=== PATIENT | female | born 1990 | race Caucasian/White ===

== ENCOUNTER → 2018-04-07 17:00 | Outpatient (CLI) | payer OTHER, MEDICAID, SELFPAY ==
--- NOTE | 2018-04-07 17:04 | DI.RAD.S_ITS ---
PROCEDURE: XR WRIST LT MIN 3V INDICATIONS: LEFT WRIST PAIN TECHNIQUE: 4 views of the wrist were acquired. COMPARISON: [facility], CT, UPPER EXTREMITY WO CONTRAST, 02/27/2013, 8:10. [facility], CR, WRIST MINIMUM 3 VIEWS LEFT, 02/15/2013, 10:09. FINDINGS: Bones: No fractures or dislocations. No suspicious bony lesions. Radiocarpal degenerative narrowing is present. Scaphoid view: The scaphoid demonstrates irregular contours as well as multiple areas of cystic change. This is likely reflective of scaphoid fracture sequela identified on 02/15/13. Soft tissues: No suspicious soft tissue calcifications. IMPRESSION: No visualized acute fracture or dislocation. Post fracture sequela of the scaphoid is present as described above. Dictated by: mIelda Daly M.D. on 04/07/2018 at 18:00 Approved by: Imelda Daly M.D. on 04/07/2018 at 18:01
== END ==
PROVIDERS: Family Provider Family Medicine; PCP Family Medicine; Visit Provider Family Medicine
DX: M25.532 Pain in left wrist (principal)
CPT/HCPCS: 73110

== ENCOUNTER 2021-05-28 18:03 | Emergency (ER) | payer OTHER, MEDICAID, SELFPAY ==
[2021-05-28 18:19] VITALS: BP 152/89; PULSE 74; RESP 18; TEMP 36.9; O2SAT 100; BMI 30.9
[2021-05-28 18:37] LABS: COVID19 -Nasal RAPID POSITIVE (Negative)
[2021-05-28 20:05] VITALS: O2SAT 99
--- NOTE | 2021-05-31 19:58 | ED.RECABL ---
HPI - Recheck/Abnormal Lab/Rx <Bijal Bonilla PA-C - Last Filed: 05/31/21 20:05> General Chief Complaint: Recheck/Abnormal Lab/Rx Stated Complaint: + at home Covid test. Time Seen by Provider: 05/28/21 19:49 Source: patient Mode of arrival: Ambulatory History of Present Illness HPI narrative: 30-year-old female with no reported past medical history presents to the ED status post a positive COVID-19 test that she took at work. Patient states she has been having URI symptoms for the past 2 days after a COVID-19 exposure. Her test at work was positive, she is here in the ED for a confirmation COVID-19 test. Patient is currently 6 months with an LMP in November. Patient endorses all over muscle aches. Patient denies fever, chills, shortness of breath, chest pain, abdominal pain, nausea, vomiting, dysuria, lightheadedness, dizziness, syncope. Patient endorses current tobacco use, marijuana use. Related Data Home Medications Medication Instructions Recorded Confirmed No Known Home Medications 05/28/21 05/28/21 Allergies Allergy/AdvReac Type Severity Reaction Status Date / Time diphenhydramine Allergy Severe Anaphylaxis Verified 05/28/21 18:41 [From Benadryl] cephalexin [CEPHALEXIN] Allergy Intermediate HIVES Verified 05/28/21 18:22 ibuprofen Allergy Intermediate Anaphylaxis Verified 05/28/21 18:43 codeine Allergy Mild Hives Verified 05/28/21 18:40 latex Allergy Unknown Verified 05/28/21 18:45 levofloxacin Allergy Unknown Verified 05/28/21 18:43 morphine Allergy Unknown Verified 05/28/21 18:43 oxycodone Allergy Unknown Verified 05/28/21 18:43 Penicillins Allergy Unknown Verified 05/28/21 18:43 procaine Allergy Unknown Verified 05/28/21 18:43 Review of Systems <Bijal Bonilla PA-C - Last Filed: 05/31/21 20:05> Constitutional Constitutional: Reports body ache(s), Denies chills, Denies fatigue, Denies fever(s), Denies frequent falls, Denies lethargy and Denies weakness Eyes Eyes: Denies change in vision, Denies eye discharge, Denies irritation and Denies loss of vision ENT Ears, Nose, Mouth, and Throat: Denies change in voice, Denies dizziness, Denies neck pain, Denies sore throat and Denies throat swelling Cardiovascular Cardiovascular: Denies chest pain, Denies irregular heart rhythm, Denies lightheadedness, Denies palpitations, Denies dyspnea, Denies dyspnea on exertion and Denies orthopnea Respiratory Respiratory: Denies cough, Denies dyspnea, Denies dyspnea on exertion and Denies wheezing Gastrointestinal Gastrointestinal: Denies abdominal pain, Denies change in bowel habits, Denies diarrhea, Denies nausea and Denies vomiting Musculoskeletal Musculoskeletal: Denies neck pain and Denies numbness Integumentary/Breasts Skin/Breast: Denies pruritus, Denies erythema, Denies rash and Denies wounds Neurologic Neurologic: Denies behavioral changes, Denies confusion, Denies dizziness, Denies frequent falls, Denies loss of vision, Denies numbness and Denies weakness Psychiatric Psychiatric: Denies anxiety, Denies behavioral changes, Denies confusion, Denies depression, Denies homicidal ideation and Denies suicidal ideation Endocrine Endocrine: Denies fatigue, Denies flushing and Denies palpitations Hematologic/Lymphatic Hematologic/Lymphatic: Denies easy bruising Allergic/Immunologic Allergic/Immunologic: Denies urticaria, Denies throat swelling and Denies wheezing Patient History <Bijal Bonilla PA-C - Last Filed: 05/31/21 20:05> Medical History Marijuana abuse Smoker Social History Smoking Status: Current every day smoker Smoking Status: Current every day smoker tobacco type: cigarettes alcohol intake frequency: other Substance Use Type: marijuana Exam <Bijal Bonilla PA-C - Last Filed: 05/31/21 20:05> Initial Vital Signs Initial Vital Signs: Vital Signs Temperature 98.5 F 05/28/21 18:19 Pulse Rate 74 05/28/21 18:19 Respiratory Rate 18 05/28/21 18:19 Blood Pressure 152/89 H 05/28/21 18:19 Pulse Oximetry 100 05/28/21 18:19 Const General: cooperative HENMT Head: normocephalic and atraumatic Ears: external ears normal and TM's normal bilaterally Nose: external nose normal and No nasal discharge Face and sinus: sinuses nontender, face symmetric, no sinus tenderness and No dry mucous membranes Mouth: oral mucosae normal and moist mucous membranes Teeth and gingiva: dentition normal Throat: tonsils normal and uvula midline Eyes General: appearance normal, both eyes and all related structures Eyelids: eyelids normal Conjunctivae: conjunctivae normal Sclera: sclerae normal Pupils: PERRL EOM: EOM intact bilaterally Neck Neck: normal visual inspection, trachea midline, No lymphadenopathy, No midline deformity and No JVD Lymphatic: No lymphedema Chest Chest: normal inspection of the chest Resp Effort & Inspection: normal respiratory effort, able to speak in complete sentences, no respiratory distress and no use of accessory muscles Auscultation: clear to auscultation bilaterally, no rales, no rhonchi and no wheezes Cardio Rate: regular rate Rhythm: regular rhythm Heart Sounds: no click, no gallops, no murmurs and no rubs Pulses: normal peripheral pulses GI Inspection: non-distended Palpation: soft, no hepatosplenomegaly, No guarding, No pulsatile mass and No tender Auscultation: normal bowel sounds Back/Spine/Pelvis Back: No CVA tenderness Cervical Spine: cervical ROM normal and No pain with cervical ROM Thoracic/Lumbar Spine: thoracic and lumbar spine normal to inspection Skin General: no rashes or lesions noted, No jaundice and No petechiae Neuro General: patient alert, patient oriented x3, gait normal and no focal motor deficits Speech: speech normal Extrem General: full ROM, no clubbing, cyanosis or edema, no pedal edema and no calf tenderness Psych Appearance: well kempt Mental Status: mental status grossly normal Attitude: cooperative Thought Content: normal and suicidality Judgment: judgment good <Zeus Samayoa MD - Last Filed: 06/01/21 07:12> Initial Vital Signs Initial Vital Signs: Vital Signs Temperature 98.5 F 05/28/21 18:19 Pulse Rate 74 05/28/21 18:19 Respiratory Rate 18 05/28/21 18:19 Blood Pressure 152/89 H 05/28/21 18:19 Pulse Oximetry 100 05/28/21 18:19 MDM - Recheck/Abnormal Lab/Rx <Bijal Bonilla PA-C - Last Filed: 05/31/21 20:05> Medical Records Attestation: I reviewed the patient's medical records. Lab Data Attestation: I reviewed the patient's lab results. Lab results narrative: COVID-19 positive Labs: Lab Results 05/28/21 Range/Units 18:15 SARS-CoV-2 (PCR) Positive H (Negative) MDM Narrative Medical decision making narrative: 30-year-old female with no reported past medical history presents to the ED status post a positive COVID-19 test that she took at work. concern for COVID-19 infection, will order COVID-19 test. Will discharge home with OBGYN follow-up and ED return precautions. <Zeus Samayoa MD - Last Filed: 06/01/21 07:12> Lab Data Labs: Lab Results 05/28/21 Range/Units 18:15 SARS-CoV-2 (PCR) Positive H (Negative) Discharge Plan Departure Patient Disposition: Home Clinical Impression: COVID-19 Instructions: DI for COVID-19 (Suspected or Confirmed ) Activity Restrictions/Additional Instructions: You were diagnosed positive for the COVID-19 vaccine in the ED today. Continue to stay hydrated by drinking lots of water. You may take Tylenol for symptoms. Continue masking an isolated for 10-14 days. Return to the ED if you experience chest pain, shortness of breath. Prescriptions: No Action No Known Home Medications RF: 0 <Zeus Samayoa MD - Last Filed: 06/01/21 07:12> Cosign ED Attending Cosignature Attestation: I was immediately available in the department for consultation. This documentation has been reviewed and I agree with assessment and plan. Supervised by Zeus Samayoa MD
== END 2021-05-28 20:06 | disposition home or self-care (01) ==
PROVIDERS: Emergency Medicine; Emergency Provider Student in an Organized Health Care Education/Training Program; Family Provider Family Medicine
DX: U07.1 COVID-19 (principal)
CPT/HCPCS: 87635; 99281; 99282; C9803

== ENCOUNTER 2021-08-13 02:13 | Inpatient (IN) | payer MEDICAID, OTHER, SELFPAY ==
[2021-08-13] VITALS (9 sets, daily range): BP systolic 122–164; BP diastolic 80–111; PULSE 70–120; RESP 12–16; TEMP 36.4–36.6; O2SAT 96–100
--- NOTE | 2021-08-13 | PATH_ITS ---
[facility] Accession Number: [id number] . 01 Material submitted: . fallopian tube - BILATERAL FALLOPIAN TUBES . 02 Diagnosis: Bilateral Fallopian Tubes, Tubal Ligation: Complete cross sections of segments of fallopian tube x2. MRV 08/17/2021 1348 Local . 02 Electronically signed: . Britt Gonzalez MD, Pathologist NPI- [id number] . 01 Gross description: . The specimen is received in formalin, labeled bilateral fallopian tubes, and consists of two fallopian tube segments measuring 1.3 cm in length by 0.6 cm in diameter each. The serosa is penny-pink and smooth. The specimen is serially sectioned and entirely submitted in cassettes A1-A2. ([id number]) /[facility] 08/15/2021 1411 Local . 02 Pathologist provided ICD-10: Z30.2 . 02 CPT . 869295 Performed at: 01 [facility] [address] [facility] [place] [facility] [place], [place], [place] [id number] MD Blair Rogel MD Phone: [phone] Performed at: 02 [facility] [address] [place], [place] [id number] MD Sheeba Lee MD Phone: [phone]
[2021-08-13 02:54] LABS: Add Manual Diff / Slide Review NO; Basophils Absolute Auto 200 /uL (0-100); Basophils Percent Auto 1.1 % (0-2); Eosinophils Absolute Auto 100 /uL (0-450); Eosinophils Percent Auto 0.8 % (2-4); Hemoglobin 12.4 g/dL (12.0-16.0); Lymphocytes Absolute Auto 3300 /uL (1100-4500); Lymphocytes Percent Auto 19.9 % (25-40); Mean Corpuscular HGB Conc 33.6 % (30-36); Mean Corpuscular Hemoglobin 27.6 PG (26-34); Mean Corpuscular Volume 82.1 fL (80-100); Monocytes Absolute Auto 900 /uL (0-900); Monocytes Percent Auto 5.4 % (3-14); Neutrophils Absolute Auto 12000 /uL (1500-7000); Neutrophils Percent Auto 72.8 % (50-75); Platelet Count 349 X10^3/uL (150-400); Red Cell Distribution Width 14.9 % (11.6-14.8); White Blood Cell Count 16.5 X10^3/uL (4.5-11.0)
[2021-08-13 03:02] LABS: Aspartate Aminotransferase 20 IU/L (14-36); BUN Creatinine Ratio 14.3 (6-22); Blood Urea Nitrogen 9 mg/dL (7-17); Estimated Glomerular Filt Rate > 60.0 mL/min (>60); Uric Acid 5.2 mg/dL (2.5-6.2)
[2021-08-13] MEDS: HYDRALAZINE 20 MG/ML VIAL 10 MG IV (03:10)
[2021-08-13 03:15] LABS: Add Manual Diff / Slide Review NO; Basophils Absolute Auto 0 /uL (0-100); Basophils Percent Auto 0.2 % (0-2); Eosinophils Absolute Auto 200 /uL (0-450); Hematocrit 36.2 % (36-46); Hemoglobin 12.1 g/dL (12.0-16.0); Lymphocytes Absolute Auto 3100 /uL (1100-4500); Lymphocytes Percent Auto 19.3 % (25-40); Mean Corpuscular HGB Conc 33.5 % (30-36); Mean Corpuscular Hemoglobin 27.5 PG (26-34); Monocytes Absolute Auto 1000 /uL (0-900); Monocytes Percent Auto 6.4 % (3-14); Neutrophils Absolute Auto 11600 /uL (1500-7000); Neutrophils Percent Auto 73.1 % (50-75); Platelet Count 348 X10^3/uL (150-400); Red Blood Cell Count 4.41 X10^6/uL (4.0-5.2); Red Cell Distribution Width 15.4 % (11.6-14.8); White Blood Cell Count 15.9 X10^3/uL (4.5-11.0)
--- NOTE | 2021-08-13 03:32 | DI.US.S_ITS ---
PROCEDURE: US OB LIMITED INDICATIONS: ACTIVE LABOR; NO CARE OUTSIDE/PRIOR DATING DATA: Last menstrual period (LMP): Unknown. LMP-based estimated date of delivery (RAVIN): Unknown. First dating scan (date and location): 08/13/2021, [facility]. Estimated date of delivery (RAVIN) from first dating scan: 09/17/2021. The calculations are made using the 3rd trimester ultrasound RAVIN of 09/17/2021. TECHNIQUE: Real-time scanning was performed of the fetus, with image documentation and biometric measurements. COMPARISON: None. FINDINGS: General: A single live intrauterine gestation is present. Presentation: Breech. Placenta: Placental position is fundal , without previa. Amniotic fluid index: 8.8 cm, normal range is 5-24 cm. Single deepest vertical pocket is 4.7 cm. heart rate: 149 beats per minute. Maternal cervical canal: Not seen biometrics: Biparietal diameter: 8.6 cm equals 34 weeks 5 days Head circumference: 32.3 cm equals 36 weeks 4 days Abdominal circumference: 31.9 cm equals 35 weeks 6 days Femur length: 6.4 cm equals 32 weeks 6 days Clinically estimated gestational age: Unknown Composite gestational age from present scan: 35 weeks 0 days Estimated weight and percentile: 2573 g, percentile rank not defined Other: Not applicable. IMPRESSION: On these images, the estimated gestational age is 35 weeks 0 days. Please note that 3rd trimester ultrasound dating is only considered accurate to within 3 weeks. Note: No significant discrepancy from the preliminary report. We strive to produce accurate, complete, and clear reports of imaging services. To assist us in improving patient care, this report was composed using standard report templates and voice recognition software. Therefore, it may contain abnormal punctuation, insertions and/or omissions. Occasional wrong-word or sound-alike substitutions may occur. Though we review the report and make efforts to correct it, we do recommend that the report be read carefully in proper context to recognize any text inaccuracies. Dictated by: J Carlos Angel M.D. on 08/13/2021 at 8:18 Approved by: J Carlos Angel M.D. on 08/13/2021 at 8:20
[2021-08-13 03:39] LABS: COVID19 - ADMIT (NP swab/PCR) Negative (Negative)
[2021-08-13] MEDS: HYDRALAZINE 20 MG/ML VIAL 5 MG IV (03:55)
[2021-08-13] MEDS: fentaNYL 100 MCG/2 ML INJ (04:20)
--- NOTE | 2021-08-13 04:20 | PM.OBHP.IH.1 ---
OB HPI Date/Time Date of admission: 08/13/21 Date Patient Seen: 08/13/21 Time Patient Seen: 03:50 History of Present Condition Chief complaint: OBS RAVIN Calculator Estimated Delivery Date Method Current WG Current Estimate 09/10/21 Conception 36w 0d Estimated Gestational Age (weeks): 35+6 : 3 Para: 2 care: none Dating criteria OB: based on LMP only Ultrasounds: none Obstetrical complications: gestational hypertension Medical complications OB: none Indications Operative indications ( section): previous uterine surgery Preadmission Labs Last OB Lab Results: Hematocrit 36.2 % (36-46) 08/13/21 02:40 08/13/21 Hemoglobin 12.1 g/dL (12.0-16.0) 08/13/21 02:40 08/13/21 Hepatitis B Surface Antigen Pending 08/13/21 02:40 08/13/21 Rubella Antibody Pending 08/13/21 02:40 08/13/21 -: Chlamydia screen: unknown, Gonorrhea screen: unknown and Urine: unknown External Labs -: Urine: unknown Evaluation Evaluation Baseline heart rate: 145 Variability: Average (6-10) monitor accelerations: Present Monitor Decelerations: Variable Contraction Frequency (minutes): 3 Uterine Contraction Intensity: Strong/Firm Status: Category ll Dilation (cm): 2 Effacement (%): 90 station: -2 [facility] Medical History Marijuana abuse Smoker Surgical History (Updated 08/13/21 @ 04:24 by Lizbeth Burris MD) History of section Social History Smoking Status: Current every day smoker Meds Home Medications and Allergies Home Medications Medication Instructions Recorded Confirmed Type No Known Home Medications 05/28/21 05/28/21 History Allergies Allergy/AdvReac Type Severity Reaction Status Date / Time diphenhydramine Allergy Severe Anaphylaxis Verified 05/28/21 18:41 [From Benadryl] cephalexin [CEPHALEXIN] Allergy Intermediate HIVES Verified 05/28/21 18:22 ibuprofen Allergy Intermediate Anaphylaxis Verified 05/28/21 18:43 codeine Allergy Mild Hives Verified 05/28/21 18:40 latex Allergy Unknown Verified 05/28/21 18:45 levofloxacin Allergy Unknown Verified 05/28/21 18:43 morphine Allergy Unknown Verified 05/28/21 18:43 oxycodone Allergy Unknown Verified 05/28/21 18:43 Penicillins Allergy Unknown Verified 05/28/21 18:43 procaine Allergy Unknown Verified 05/28/21 18:43 OB Exam Narrative Exam Narrative: Generally: Patient in severe distress secondary to contractions Lungs: Clear to auscultation bilaterally Cardiovascular: Regular rate and rhythm Fundal height: 36 cm Estimated weight: 2500 g Extremities: 1+ DTRs, trace edema Objective Labs Result Diagrams: 08/13/21 02:40 08/13/21 02:40 Labs: Laboratory Results - last 24 hr 08/13/21 08/13/21 08/13/21 02:30 02:40 02:40 WBC 16.5 H 15.9 H RBC 4.50 4.41 Hgb 12.4 12.1 Hct 37.0 36.2 MCV 82.1 82.0 MCH 27.6 27.5 MCHC 33.6 33.5 RDW 14.9 H 15.4 H Plt Count 349 348 Neut % (Auto) 72.8 73.1 Lymph % (Auto) 19.9 L 19.3 L [place] % (Auto) 5.4 6.4 Eos % (Auto) 0.8 L 1.0 L Baso % (Auto) 1.1 0.2 Neut # (Auto) 17309 H 48329 H Lymph # (Auto) 3300 3100 [place] # (Auto) 900 1000 H Eos # (Auto) 100 200 Baso # (Auto) 200 H 0 BUN Creatinine Estimated GFR BUN/Creatinine Ratio Uric Acid AST SARS-CoV-2 (PCR) Negative 08/13/21 02:40 WBC RBC Hgb Hct MCV MCH MCHC RDW Plt Count Neut % (Auto) Lymph % (Auto) [place] % (Auto) Eos % (Auto) Baso % (Auto) Neut # (Auto) Lymph # (Auto) [place] # (Auto) Eos # (Auto) Baso # (Auto) BUN 9 Creatinine 0.63 Estimated GFR > 60.0 BUN/Creatinine Ratio 14.3 Uric Acid 5.2 AST 20 SARS-CoV-2 (PCR) Assessment and Plan Assessment and Plan Assessment and Plan narrative: Assessment: 31-year-old 3 para 2 at approximately 36 weeks gestation by conception date in active labor with 2 prior sections. Suspect drug use No care Severe gestational hypertension, no other signs and symptoms of preeclampsia Desires permanent sterilization Plan: Patient received 10 mg slow IV push of IV hydralazine, followed 20 minutes later by 5 mg slow IV push Repeat section with bilateral tubal ligation The risks, benefits, and alternatives to the procedure were explained to the patient. The risks including bleeding, infection, injury to the bowel, bladder, or ureters. She understands that the tubal ligation will render her unable to have any more children. She also understands that there is possibility of a clot in the leg or lungs due to this major surgery. She understands all of these risks and agrees to proceed. A full par Q was held and consent form was signed. Group B strep obtained COVID negative Time Spent with Patient Total time spent with greater than 50% in coordination of care (as documented) at patient's floor/unit and/or counseling patient:: 25 - 35 minutes
[2021-08-13] MEDS: CLINDAMYCIN 900 MG/50 ML PIGGYBACK 50 MG IV (05:00)
[2021-08-13 05:05] LABS: Hepatitis B Surface Antigen NEGATIVE s/c (NEGATIVE); Rubella Antibody IgG 11.7 IU/mL (>15)
--- NOTE | 2021-08-13 05:15 | SUR.OPER ---
Supine on Padded OR bed, head on pillow, safety belt at thigh, arms secured on padded arm boards at <90 degrees abduction. Bump under right buttock. Legs uncrossed with pillow under knees, gel pad to heels, tape over blanket to lower legs.
--- NOTE | 2021-08-13 05:53 | P.OP_ITS ---
Operative Date/Time/Diagnoses Date of procedure: 08/13/21 Time of procedure: 05:53 Pre-op diagnosis: Estimated gestational age of 35-36 weeks. No care Breech presentation Active labor 2 prior sections Desires permanent sterilization Post-op diagnosis: same Procedure & Clinicians Procedure: Repeat low-transverse section Bilateral tubal ligation Same procedure as scheduled: Yes Indications: Breech presentation Two prior sections Desires permanent sterilization Surgeon: Lizbeth Burris Chairperson Anesthesiology: Constance Gordillo Reason for Chairperson Anesthesiology: The assistant counsel was responsible for retraction on the way in. She is cyst did with delivery of the breech infant. She is cyst and with retraction and cutting of suture on closure. Anesthesia Type: Spinal Operative Notes Findings: Live male in the complete breech presentation Normal uterus, tubes, and ovaries Closure Type: primary Specimen(s): cord blood and tubes/segments of tubes Intraoperative meds administered: Ketorolac and Pitocin Applied: Catheter (Latex free, to continuous drainage) Estimated Blood Loss (mL): 500 Blood products transfused: none Procedure in detail: The patient was taken to the operating room where she was placed in the seated position. Spinal anesthesia was administered. The patient was then placed in the dorsal supine position with a leftward tilt. She was prepped and draped in the usual sterile fashion. A timeout was performed. After spinal analgesia was found to be adequate, a Pfannenstiel skin incision was made through the previous incision and carried through to the underlying layer fascia. The fascia was nicked in the midline, and the incision extended bilaterally with the Dunham scissors. The superior aspect of the fascial incision was grasped with a Parish clamps, elevated, and the underlying rectus muscles dissected off sharply and bluntly. Attention was then turned to the inferior aspect of this incision wh ich in a similar fashion was grasped with a Parish clamps, elevated, and the underlying rectus muscles dissected off sharply and bluntly. The rectus muscles were in the midline. The peritoneum was identified, grasped between 2 hemostats, and entered sharply with the Metzenbaum scissors. This incision was extended superiorly and inferiorly with good visualization of the bladder. The Saji was inserted into the peritoneal cavity. The vesicouterine peritoneum was identified, grasped with the pickup, and entered sharply with the Metzenbaum scissors. This incision was extended bilaterally, and the bladder flap was created digitally. The bladder blade was inserted. The lower uterine segment was incised in a transverse fashion with the scalpel. Upon entering the amniotic sac there was moderate amount of clear amniotic fluid. The infant was delivered by total breech extraction. The nose and mouth were suctioned with bulb suction. The cord was double clamped and cut. The infant was handed off to waiting RN and RT. Cord bloods were obtained. The placenta was delivered manually. The uterus was cleared of all clots and debris. The uterine incision was repaired with #1 chromic in a running interlocking fashion, and a second layer the same suture was used for an imbricating layer. Hemostasis was achieved. The tubes and ovaries were examined and were found to be normal. The right tube was carried out to the fimbriated end. 2[address] to the distal and a 2 cm segment of tube was ligated with 0 plain chromic x2. A 1 cm segment of tube was excised. The ends of the tube were cauterized. This was repeated on the patient's left tube. Gutters were cleared of all clots and debris. The bladder flap was reapproximated using 2-0 Vicryl in a running fashion. The parietal peritoneum was closed using 2-0 Vicryl in a running fashion. The fascia was reapproximated using 0 Vicryl in a running fashion. The subcutaneous layer was copiously irrigated with warm normal saline. 6 simple interrupted sutures of 3-0 Vicryl were placed to reapproximate the subcutaneous layer. The skin was closed with 4-0 Monocrylin a subcuticular fashion. Steri-Strips were p laced. An Aquacell dressing was placed. The uterus was expressed of a small amount of old blood. Sponge, lap, and instrument counts were correct x-2. The patient tolerated the procedure well, and was taken to PACU in stable condition. Complications: none Baby 1: Infant Gender: Male Presentation: breech Details: complete Placental Delivery Description: Manual Removal Cord Vessel Description: 3 Vessels score (1 min): 8 score (5 min): 9 weight: 6 lb 9 oz Post-operative Condition: stable Disposition: PACU Aftercare: routine postop
--- NOTE | 2021-08-13 05:53 | PM.PREOP ---
Pre-operative Note COVID-19 COVID-19 status: Negative Result date/Date tested (Pos, Neg/Pending): 08/13/21 Interval Note History & Physical reviewed/Exam performed by Physician: Yes Changes to H&P: No H&P completed within 30 days and has changed as indicated here:: 08/13/21
[2021-08-13 06:03] LABS: Bilirubin Urine UA NEGATIVE (NEGATIVE); Color Urine UA YELLOW; Glucose Urine UA NEGATIVE (Negative); Ketones Urine UA TRACE (NEGATIVE); Leukocyte Esterase Urine UA NEGATIVE (NEGATIVE); Nitrite Urine UA NEGATIVE (Negative); Occult Blood Urine UA 1+ (Negative); Protein Urine UA 2+ (Negative); Specific Gravity Urine UA 1.025 (1.000-1.035); Urobilinogen Urine UA 0.2 E.U./dL (0.2)
[2021-08-13 06:05] LABS: Appearance Urine UA SL CLOUDY; pH Urine UA 6.5 (4.5-8.0)
[2021-08-13 06:13] LABS: Creatinine Urine Random 260.4 mg/dL; Protein (Total) Urine Random 47 mg/dL (0-12); Protein Creatinine Ratio Urine 0.18 GRAM/24H
[2021-08-13] MEDS: HYDROCODONE/ACET 5/325 TABLET 1 TAB PO (06:28)
[2021-08-13 06:42] LABS: Bacteria Urine Many (>30); Culture Indicated Urine Specimen Cultured; RBC Urine 1-5/HPF (0-5/HPF); WBC Urine 1-5/HPF (0-5/HPF)
[2021-08-13 06:45] LABS: UR Morphine/Opiate cutoff 300 Negative (Negative); Ur Creatinine 50 (Normal); Ur Specific Gravity 1.025 (Normal); Urine Amphetamines Positive (Negative); Urine Cocaine Negative (Negative); Urine Methamphetamines Positive (Negative); Urine Tetrahydrocannabinol Positive (Negative); Urine pH 5 (Normal)
[2021-08-13 06:46] LABS: Urine Barbiturates Negative (Negative); Urine Benzodiazepines Negative (Negative); Urine MDMA Negative (Negative); Urine Methadone Negative (Negative); Urine Oxycodone Negative (Negative); Urine Phencyclidine Negative (Negative); Urine Tricyclic Antidepressant Negative (Negative)
--- NOTE | 2021-08-13 06:50 | SUR.OPER ---
viable baby boy born at 0521, placenta delivered at 0524, cord blood and placenta given to OB RN
--- NOTE | 2021-08-13 06:51 | SUR.PHASEI ---
Addendum entered by Sarah Pryor R.N. 08/13/21 07:00: Received with 20 units pitocin in IVF. Nearly completed on discharge from PACU. Original Note: Late Entry: Received to PACU after spinal anesthesia. VSS. Report from Dr Lopez and JHOAN Palacios Report called to JHOAN Lopes. Transferred to center room 4. Received in room by JHOAN Chavez.
[2021-08-13] MEDS: LACTATED RINGERS 1,000 ML 100 ML IV ×4 (07:15→19:03)
[2021-08-13 07:25] LABS: Strep Grp B PCR NEG for Grp B Strep
[2021-08-13] MEDS: PRENATAL VIT,CALC/IRON/FOLIC 1 TABLET 1 TAB PO (08:22)
[2021-08-13] MEDS: LABETALOL 20 MG/4 ML SYRINGE IV (08:23)
[2021-08-13] MEDS: DOCUSATE 100 MG CAPSULE 200 MG PO (08:23)
[2021-08-13] MEDS: ACETAMINOPHEN 325 MG TABLET 650 MG PO (08:35)
[2021-08-13] MEDS: KETOROLAC 30 MG/ML VIAL IV (11:35)
[2021-08-13] MEDS: TRAMADOL 50 MG TABLET 100 MG PO ×2 (13:11→20:01)
[2021-08-13 19:28] LABS: Add Manual Diff / Slide Review NO; Basophils Absolute Auto 100 /uL (0-100); Basophils Percent Auto 0.4 % (0-2); Eosinophils Absolute Auto 0 /uL (0-450); Hematocrit 23.1 % (36-46); Hemoglobin 7.6 g/dL (12.0-16.0); Lymphocytes Absolute Auto 2300 /uL (1100-4500); Lymphocytes Percent Auto 10.8 % (25-40); Mean Corpuscular HGB Conc 32.8 % (30-36); Mean Corpuscular Volume 82.4 fL (80-100); Monocytes Absolute Auto 1000 /uL (0-900); Monocytes Percent Auto 4.5 % (3-14); Neutrophils Absolute Auto 17900 /uL (1500-7000); Neutrophils Percent Auto 84.3 % (50-75); Platelet Count 371 X10^3/uL (150-400); Red Blood Cell Count 2.81 X10^6/uL (4.0-5.2); Red Cell Distribution Width 15.1 % (11.6-14.8); White Blood Cell Count 21.3 X10^3/uL (4.5-11.0)
--- NOTE | 2021-08-13 19:29 | P.PNOB_ITS ---
Subjective - OB Subjective Patient comments: tolerating diet and other (Complaining of lower abdominal pain not necessarily just incisional pain) baby status: doing well feeding status: exclusively bottle feeding Date Patient Seen: 08/13/21 Time Patient Seen: 19:29 Interval history: Postoperative repeat section with bilateral tubal ligation. Patient with decreased urine output. Abdominal pain. Patient denies headaches, scotomata, epigastric pain. She denies nausea. She denies chest pains or shortness of breath. Patient states she arrived in with a cough into the hospital. Exam Vital Signs (past 8 hours): - Blood pressure 118/81, pulse 90, temperature 97.7? 08/13/21 11:35 Temperature 97.5 F L Oxygen Delivery Method Room Air Narrative Exam Narrative: Abdomen is soft. She has tenderness across her lower abdomen with no rebound. Uterus is firm, at U. Dressing is clean, dry, intact. Mild lochia. Extremities without edema and nontender. Objective Labs Result Diagrams: 08/13/21 19:21 08/13/21 19:21 Labs: Laboratory Results - last 24 hr 08/13/21 08/13/21 08/13/21 02:30 02:40 02:40 WBC 16.5 H RBC 4.50 Hgb 12.4 Hct 37.0 MCV 82.1 MCH 27.6 MCHC 33.6 RDW 14.9 H Plt Count 349 Neut % (Auto) 72.8 Lymph % (Auto) 19.9 L [place] % (Auto) 5.4 Eos % (Auto) 0.8 L Baso % (Auto) 1.1 Neut # (Auto) 58434 H Lymph # (Auto) 3300 [place] # (Auto) 900 Eos # (Auto) 100 Baso # (Auto) 200 H BUN Creatinine Estimated GFR BUN/Creatinine Ratio Uric Acid AST Urine Color Urine Appearance Urine pH Ur Specific [place] Urine Protein Urine Glucose (UA) Urine Ketones Urine Occult Blood Urine Nitrate Urine Bilirubin Urine Urobilinogen Ur Leukocyte Esterase Urine RBC Urine WBC Urine Bacteria Ur Culture Indicated? U Random Total Protein Urine Creatinine Protein/Creatinin Ratio U Opiates 300ng/mL cut Ur Oxycodone Screen Urine Methadone Screen Ur Barbiturates Screen U Tricyclic Antidepress Ur Phencyclidine Scrn Ur Amphetamines Screen U Methamphetamines Scrn Ur MDMA Scrn (Ecstasy) U Benzodiazepines Scrn Urine Cocaine Screen U Marijuana (THC) Screen SARS-CoV-2 (PCR) Negative Hep Bs Antigen Negative Rubella Antibody 11.7 L Group B Strep (PCR) Blood Type Antibody Screen 08/13/21 08/13/21 08/13/21 02:40 02:40 03:05 WBC 15.9 H RBC 4.41 Hgb 12.1 Hct 36.2 MCV 82.0 MCH 27.5 MCHC 33.5 RDW 15.4 H Plt Count 348 Neut % (Auto) 73.1 Lymph % (Auto) 19.3 L [place] % (Auto) 6.4 Eos % (Auto) 1.0 L Baso % (Auto) 0.2 Neut # (Auto) 49574 H Lymph # (Auto) 3100 [place] # (Auto) 1000 H Eos # (Auto) 200 Baso # (Auto) 0 BUN 9 Creatinine 0.63 Estimated GFR > 60.0 BUN/Creatinine Ratio 14.3 Uric Acid 5.2 AST 20 Urine Color Urine Appearance Urine pH Ur Specific [place] Urine Protein Urine Glucose (UA) Urine Ketones Urine Occult Blood Urine Nitrate Urine Bilirubin Urine Urobilinogen Ur Leukocyte Esterase Urine RBC Urine WBC Urine Bacteria Ur Culture Indicated? U Random Total Protein Urine Creatinine Protein/Creatinin Ratio U Opiates 300ng/mL cut Ur Oxycodone Screen Urine Methadone Screen Ur Barbiturates Screen U Tricyclic Antidepress Ur Phencyclidine Scrn Ur Amphetamines Screen U Methamphetamines Scrn Ur MDMA Scrn (Ecstasy) U Benzodiazepines Scrn Urine Cocaine Screen U Marijuana (THC) Screen SARS-CoV-2 (PCR) Hep Bs Antigen Rubella Antibody Group B Strep (PCR) Blood Type O Positive Antibody Screen Negative 08/13/21 08/13/21 08/13/21 04:10 05:50 05:50 WBC RBC Hgb Hct MCV MCH MCHC RDW Plt Count Neut % (Auto) Lymph % (Auto) [place] % (Auto) Eos % (Auto) Baso % (Auto) Neut # (Auto) Lymph # (Auto) [place] # (Auto) Eos # (Auto) Baso # (Auto) BUN Creatinine Estimated GFR BUN/Creatinine Ratio Uric Acid AST Urine Color Yellow Urine Appearance Sl cloudy Urine pH 6.5 Ur Specific [place] 1.025 Urine Protein 2+ H Urine Glucose (UA) Negative Urine Ketones Trace H Urine Occult Blood 1+ H Urine Nitrate Negative Urine Bilirubin Negative Urine Urobilinogen 0.2 Ur Leukocyte Esterase Negative Urine RBC 1-5/hpf Urine WBC 1-5/hpf Urine Bacteria Many (>30) H Ur Culture Indicated? Specimen cultured U Random Total Protein 47 H Urine Creatinine 260.4 Protein/Creatinin Ratio 0.18 U Opiates 300ng/mL cut Ur Oxycodone Screen Urine Methadone Screen Ur Barbiturates Screen U Tricyclic Antidepress Ur Phencyclidine Scrn Ur Amphetamines Screen U Methamphetamines Scrn Ur MDMA Scrn (Ecstasy) U Benzodiazepines Scrn Urine Cocaine Screen U Marijuana (THC) Screen SARS-CoV-2 (PCR) Hep Bs Antigen Rubella Antibody Group B Strep (PCR) Neg for grp b strep Blood Type Antibody Screen 08/13/21 06:35 WBC RBC Hgb Hct MCV MCH MCHC RDW Plt Count Neut % (Auto) Lymph % (Auto) [place] % (Auto) Eos % (Auto) Baso % (Auto) Neut # (Auto) Lymph # (Auto) [place] # (Auto) Eos # (Auto) Baso # (Auto) BUN Creatinine Estimated GFR BUN/Creatinine Ratio Uric Acid AST Urine Color Urine Appearance Urine pH Ur Specific [place] Urine Protein Urine Glucose (UA) Urine Ketones Urine Occult Blood Urine Nitrate Urine Bilirubin Urine Urobilinogen Ur Leukocyte Esterase Urine RBC Urine WBC Urine Bacteria Ur Culture Indicated? U Random Total Protein Urine Creatinine Protein/Creatinin Ratio U Opiates 300ng/mL cut Negative Ur Oxycodone Screen Negative Urine Methadone Screen Negative Ur Barbiturates Screen Negative U Tricyclic Antidepress Negative Ur Phencyclidine Scrn Negative Ur Amphetamines Screen Positive H U Methamphetamines Scrn Positive H Ur MDMA Scrn (Ecstasy) Negative U Benzodiazepines Scrn Negative Urine Cocaine Screen Negative U Marijuana (THC) Screen Positive H SARS-CoV-2 (PCR) Hep Bs Antigen Rubella Antibody Group B Strep (PCR) Blood Type Antibody Screen Assessment & Plan Assessment and Plan (1) Delivery by section for breech presentation: Status: Acute Assessment and plan: Patient with difficulty with pain control due to multiple allergies however per nursing she has been able to sleep. Low urinary output. IV fluid challenge, and will give the patient hydrochlorothiazide. Rechecking labs. Plan day: 0 plan OB: routine postop care Comments: Monitoring for urine output. Time Spent With Patient Time: Total time spent is greater than 50% in coordination of care (as documented) at patient's floor/unit and/or counseling patient: Time with patient: 15-24 minutes
[2021-08-13 19:38] LABS: Alanine Aminotransferase 13 IU/L (<35); Albumin 2.6 g/dL (3.5-5.0); Albumin Globulin Ratio 1.2 (1.0-2.8); Alkaline Phosphatase 117 U/L (38-126); Aspartate Aminotransferase 19 IU/L (14-36); Bilirubin Total 0.2 mg/dL (0.2-1.3); Blood Urea Nitrogen 15 mg/dL (7-17); Calcium 7.9 mg/dL (8.4-10.2); Carbon Dioxide 21 mmol/L (22-32); Chloride 106 mmol/L (98-107); Estimated Glomerular Filt Rate 59.1 mL/min (>60); Globulin 2.2 g/dL (1.7-4.1); Glucose 89 mg/dL (70-100); HEMOLYSIS < 15 (0-50); Potassium 5.3 mmol/L (3.4-5.1); Sodium 132 mmol/L (137-145); Total Protein 4.8 g/dL (6.3-8.2)
[2021-08-13] MEDS: hydroCHLOROthiazide 25 MG TABLET PO (20:01)
[2021-08-13] MEDS: NITROFURANTOIN ER 100 MG CAPSULE PO (20:53)
[2021-08-14] VITALS (8 sets, daily range): BP systolic 128–142; BP diastolic 71–91; PULSE 94–115; RESP 18–20; TEMP 36.7–37.4
[2021-08-14] MEDS: TRAMADOL 50 MG TABLET 100 MG PO ×4 (02:08→17:59)
--- NOTE | 2021-08-14 07:21 | P.PNOB_ITS ---
Subjective - OB Subjective Patient comments: no complaints [place] baby status: doing well and bottle feeding well [place] feeding status: exclusively bottle feeding Date Patient Seen: 08/14/21 Time Patient Seen: 07:21 Interval history: Patient denies headaches, scotomata, epigastric pain. Exam Vital Signs (past 8 hours): Blood pressure 127/83, pulse of 96, temperature 98.1? Oxygen Delivery Method Room Air Narrative Exam Narrative: Abdomen is soft, appropriately tender. Uterus is firm, at U, appropriately tender. Dressing is clean, dry, intact. Mild lochia. Extremities with trace edema and nontender. Objective Labs Result Diagrams: 08/13/21 19:21 08/13/21 19:21 Labs: Laboratory Results - last 24 hr 08/13/21 08/13/21 08/13/21 04:10 19: 19:21 WBC 21.3 H RBC 2.81 L Hgb 7.6 L Hct 23.1 L MCV 82.4 MCH 27.0 MCHC 32.8 RDW 15.1 H Plt Count 371 Neut % (Auto) 84.3 H Lymph % (Auto) 10.8 L [place] % (Auto) 4.5 Eos % (Auto) 0.0 L Baso % (Auto) 0.4 Neut # (Auto) 03477 H Lymph # (Auto) 2300 [place] # (Auto) 1000 H Eos # (Auto) 0 Baso # (Auto) 100 Sodium 132 L Potassium 5.3 H Chloride 106 Carbon Dioxide 21 L BUN 15 Creatinine 1.07 H Estimated GFR 59.1 L BUN/Creatinine Ratio 14.0 Glucose 89 Calcium 7.9 L Total Bilirubin 0.2 AST 19 ALT 13 Alkaline Phosphatase 117 Total Protein 4.8 L Albumin 2.6 L Globulin 2.2 Albumin/Globulin Ratio 1.2 Group B Strep (PCR) Neg for grp b strep Assessment & Plan Assessment and Plan (1) Delivery by section for breech presentation: Status: Acute Plan day: 1 plan OB: routine postop care Comments: Hematocrit pending this morning. Will try to begin ambulation with the patient. Time Spent With Patient Time: Total time spent is greater than 50% in coordination of care (as documented) at patient's floor/unit and/or counseling patient: Time with patient: less than 15 minutes
[2021-08-14] MEDS: DOCUSATE 100 MG CAPSULE 200 MG PO (08:34)
[2021-08-14] MEDS: PRENATAL VIT,CALC/IRON/FOLIC 1 TABLET 1 TAB PO (08:34)
[2021-08-14] MEDS: LACTATED RINGERS 1,000 ML 1000 ML IV (08:35)
--- NOTE | 2021-08-14 12:20 | DIET.CONS ---
Dietary Consultation Note Admission Date: 08/13/2021 02:13 Assessment: 31 y/o F x1 day after delivery by section. Consulted due to potential for difficulty eating r/t no teeth. RD consulted with pt and offered easy chew diet. She declined. States she is satisfied with current diet and can eat anything. No PO info available for review in EMR. Pt endorses good PO. If PO <75% d/t difficulty chewing, kitchen can add to diet order easy chew, currently on mechanically soft diet. Pt states she has not nutrition questions at this time. 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 Will relay to kitchen. Diet: 08/14/21 Breakfast General (Regular) Diet Diet Modifications: Mechanically soft Labs: RBC 2.81 X10^6/uL (4.0-5.2) L 08/13/21 19:21 Hgb 7.6 g/dL (12.0-16.0) L 08/13/21 19:21 Hct 23.1 % (36-46) L 08/13/21 19:21 Creatinine 1.07 mg/dL (0.52-1.04) H 08/13/21 19:21 Interventions: Informed kitchen on coconut allergy. Discussed potential for easy chew diet with pt, she declined. Monitoring/Evaluations: consult prn Electronically Signed by: Ailyn Nunez 08/14/21 12:20 Clinical Dietitian [address] [id number]
[2021-08-14] MEDS: NITROFURANTOIN ER 100 MG CAPSULE PO ×2 (14:13→21:25)
[2021-08-14 15:10] LABS: Hematocrit 15.6 % (36-46); Hemoglobin 5.2 g/dL (12.0-16.0)
--- NOTE | 2021-08-14 20:48 | PM.OBPN.1 ---
Subjective - OB Subjective Patient comments: pain well controlled [place] baby status: doing well feeding status: exclusively bottle feeding Date Patient Seen: 08/14/21 Time Patient Seen: 20:48 Interval history: Patient is feeling better after 2 units of packed red blood cells. She denies headaches, scotomata, epigastric pain. Her abdominal pain is improving. Exam Vital Signs (past 8 hours): - 08/14/21 15:56 08/14/21 16:06 08/14/21 16:45 Temperature 98.4 F 98.7 F 98.0 F Pulse Rate 110 H 103 H 115 H Respiratory Rate 20 20 20 Blood Pressure 142/73 H 137/71 128/75 08/14/21 17:40 08/14/21 18:28 08/14/21 18:30 Temperature 99.2 F 98.9 F 98.9 F Pulse Rate 110 H 101 H 100 H Respiratory Rate 20 20 20 Blood Pressure 141/90 H 138/86 138/84 08/14/21 18:41 Temperature 99.3 F Pulse Rate 115 H Respiratory Rate 20 Blood Pressure 129/91 H Oxygen Delivery Method Room Air Narrative Exam Narrative: Abdomen is soft with decreased tenderness from previous exam. Uterus is firm, at U, appropriately tender. Dressing is clean, dry, intact. Mild lochia. Extremities with +1 edema and nontender. Objective Labs Result Diagrams: 08/14/21 14:45 08/13/21 19:21 Labs: Laboratory Results - last 24 hr 08/13/21 08/13/21 08/14/21 03:05 05:50 14:45 Hgb 5.2 L* Hct 15.6 L* Urine Color Yellow Urine Appearance Sl cloudy Urine pH 6.5 Ur Specific [place] 1.025 Urine Protein 2+ H Urine Glucose (UA) Negative Urine Ketones Trace H Urine Occult Blood 1+ H Urine Nitrate Negative Urine Bilirubin Negative Urine Urobilinogen 0.2 Ur Leukocyte Esterase Negative Urine RBC 1-5/hpf Urine WBC 1-5/hpf Urine Bacteria Many (>30) H Ur Culture Indicated? Specimen cultured Blood Type O Positive Antibody Screen Negative Crossmatch See Detail Assessment & Plan Assessment and Plan (1) Delivery by section for breech presentation: Status: Acute (2) Acute blood loss anemia: Status: Acute Plan day: 1 plan OB: routine postop care Comments: Will check post transfusion hemoglobin levels. Will also than repeat in a.m. to make sure no continued bleeding. Time Spent With Patient Time: Total time spent is greater than 50% in coordination of care (as documented) at patient's floor/unit and/or counseling patient: Time with patient: less than 15 minutes
[2021-08-14] MEDS: ACETAMINOPHEN 325 MG TABLET 650 MG PO (21:25)
[2021-08-14 23:15] LABS: Hematocrit 20.3 % (36-46); Hemoglobin 6.8 g/dL (12.0-16.0)
[2021-08-14 23:23] LABS: BUN Creatinine Ratio 14.3 (6-22); Blood Urea Nitrogen 11 mg/dL (7-17); Calcium 8.3 mg/dL (8.4-10.2); Carbon Dioxide 27 mmol/L (22-32); Chloride 103 mmol/L (98-107); Estimated Glomerular Filt Rate > 60.0 mL/min (>60); Glucose 84 mg/dL (70-100); HEMOLYSIS < 15 (0-50); Potassium 4.2 mmol/L (3.4-5.1); Sodium 133 mmol/L (137-145)
[2021-08-15] MEDS: LACTATED RINGERS 1,000 ML 100 ML IV (00:10)
[2021-08-15] MEDS: TRAMADOL 50 MG TABLET 100 MG PO ×4 (00:10→18:40)
[2021-08-15] MEDS: ACETAMINOPHEN 325 MG TABLET 650 MG PO ×2 (03:02→09:14)
[2021-08-15 04:11] LABS: Hepatitis B Core Antibody Negative (Negative); RPR Screen Non Reactive (Non Reactive)
[2021-08-15 06:42] LABS: Add Manual Diff / Slide Review NO; Basophils Absolute Auto 0 /uL (0-100); Basophils Percent Auto 0.4 % (0-2); Eosinophils Absolute Auto 100 /uL (0-450); Eosinophils Percent Auto 1.2 % (2-4); Lymphocytes Absolute Auto 2000 /uL (1100-4500); Lymphocytes Percent Auto 18.4 % (25-40); Mean Corpuscular HGB Conc 33.6 % (30-36); Mean Corpuscular Hemoglobin 28.2 PG (26-34); Mean Corpuscular Volume 83.9 fL (80-100); Monocytes Absolute Auto 800 /uL (0-900); Monocytes Percent Auto 7.4 % (3-14); Neutrophils Absolute Auto 7800 /uL (1500-7000); Neutrophils Percent Auto 72.6 % (50-75); Platelet Count 246 X10^3/uL (150-400); Red Blood Cell Count 2.21 X10^6/uL (4.0-5.2); Red Cell Distribution Width 15.4 % (11.6-14.8); White Blood Cell Count 10.8 X10^3/uL (4.5-11.0)
[2021-08-15 06:45] LABS: Hematocrit 18.6 % (36-46); Hemoglobin 6.2 g/dL (12.0-16.0)
[2021-08-15] MEDS: DOCUSATE 100 MG CAPSULE 200 MG PO (09:12)
[2021-08-15] MEDS: PRENATAL VIT,CALC/IRON/FOLIC 1 TABLET 1 TAB PO (09:13)
[2021-08-15] MEDS: NITROFURANTOIN ER 100 MG CAPSULE PO ×2 (09:13→20:54)
[2021-08-15] MEDS: MAGNESIUM HYDROXIDE 30 ML UDC PO (11:26)
[2021-08-15] MEDS: SIMETHICONE 80 MG TABLET PO (11:26)
--- NOTE | 2021-08-15 11:47 | PM.OBPN.1 ---
Subjective - OB Subjective Patient comments: incisional pain and other (Gas pains) [place] baby status: bottle feeding well feeding status: exclusively bottle feeding Date Patient Seen: 08/15/21 Time Patient Seen: 11:48 Interval history: Post section day number 2. Patient continues to a low hematocrit after 2 units of packed red blood cells. She has been able to get up today. She is not passing gas and has gas pains. Exam Vital Signs (past 8 hours): Blood pressure 139/80, pulse 104, temperature 37.0? Oxygen Delivery Method Room Air Narrative Exam Narrative: Abdomen is soft with some mild distension. Minimal tenderness. Uterus is firm, at U, minimally tender. Dressing is clean, dry, intact. Minimal lochia. Extremities with trace edema and nontender. Objective Labs Result Diagrams: 08/15/21 06:10 08/14/21 23:00 Labs: Laboratory Results - last 24 hr 08/13/21 08/13/21 08/13/21 02:40 02:40 03:05 WBC RBC Hgb Hct MCV MCH MCHC RDW Plt Count Neut % (Auto) Lymph % (Auto) [place] % (Auto) Eos % (Auto) Baso % (Auto) Neut # (Auto) Lymph # (Auto) [place] # (Auto) Eos # (Auto) Baso # (Auto) Sodium Potassium Chloride Carbon Dioxide BUN Creatinine Estimated GFR BUN/Creatinine Ratio Glucose Calcium Serum VDRL Non reactive Hep B Core Total Ab Negative Blood Type O Positive Antibody Screen Negative Crossmatch See Detail 08/14/21 08/14/21 08/14/21 14:45 23:00 23:00 WBC RBC Hgb 5.2 L* 6.8 L* Hct 15.6 L* 20.3 L* MCV MCH MCHC RDW Plt Count Neut % (Auto) Lymph % (Auto) [place] % (Auto) Eos % (Auto) Baso % (Auto) Neut # (Auto) Lymph # (Auto) [place] # (Auto) Eos # (Auto) Baso # (Auto) Sodium 133 L Potassium 4.2 Chloride 103 Carbon Dioxide 27 BUN 11 Creatinine 0.77 Estimated GFR > 60.0 BUN/Creatinine Ratio 14.3 Glucose 84 Calcium 8.3 L Serum VDRL Hep B Core Total Ab Blood Type Antibody Screen Crossmatch 08/15/21 06:10 WBC 10.8 RBC 2.21 L Hgb 6.2 L* Hct 18.6 L* MCV 83.9 MCH 28.2 MCHC 33.6 RDW 15.4 H Plt Count 246 Neut % (Auto) 72.6 Lymph % (Auto) 18.4 L [place] % (Auto) 7.4 Eos % (Auto) 1.2 L Baso % (Auto) 0.4 Neut # (Auto) 7800 H Lymph # (Auto) 2000 [place] # (Auto) 800 Eos # (Auto) 100 Baso # (Auto) 0 Sodium Potassium Chloride Carbon Dioxide BUN Creatinine Estimated GFR BUN/Creatinine Ratio Glucose Calcium Serum VDRL Hep B Core Total Ab Blood Type Antibody Screen Crossmatch Assessment & Plan Assessment and Plan (1) Delivery by section for breech presentation: Status: Acute (2) Acute blood loss anemia: Status: Acute Plan day: 2 plan OB: routine postop care Comments: Will recheck hematocrit and 12 hours. Will give IV iron sucrose. Encourage ambulation if able. Time Spent With Patient Time: Total time spent is greater than 50% in coordination of care (as documented) at patient's floor/unit and/or counseling patient: Time with patient: less than 15 minutes
[2021-08-15] MEDS: IRON SUCROSE 100 MG in SODIUM CHLORIDE 0.9% 100 ML 420 ML IV (12:28)
[2021-08-15 15:00] VITALS: BP 141/75; PULSE 82; RESP 16; TEMP 36.7
--- NOTE | 2021-08-15 16:17 | CM.SWNOTE ---
TICKET WRITER Consult Note This TICKET WRITER requested to consult to assess needs of this 31 yo female, gave to baby boy by C section 08.13.21, tox + for meth, amphetamines and marijuana. Placed call to nursing staff in the center 08.13.[address] call to CPS /known concerns to initiate CPS investigation. According to RN, CPS will not have the staff to respond to this referral until Tuesday08.17.21 According to RN taking care of mom today; both mom and FOB require many cues to care for baby boy's needs ie cues to hold, change and feed baby. Mom and FOB do not awake to baby's cries according to nursing staff Met w/mom, introduced role. Mom currently staying w a friend [facility] the [facility]. FOB, John, lives in [place]. This couple sees each other when he has work up here. Mom plans to take baby boy Ashleigh home upon DC , but unable to articulate a plan to this TICKET WRITER Patient admits to chronic housing instability, states she is currently unemployed and attempting to get social security benefits back Mom is not in custody of her 9 and 13 yo and does not have visitation rights, mom states due to life and family and miscommunication Mom Anyi denies drug use throughout her until she relapsed a week before she went into delivery. Mom says she applied to a family housing viv like [facility] here in [place] but cannot remember the name, when she applied, and when she will hear from them. Overall, mom Anyi unable to give this TICKET WRITER a plan on how she will take baby boy home safely w/necessary supports in place. Anyi states she would like to remain sober, mom has been a part of drug counseling and mental health counseling briefly in the past that was court mandated; mom denies resources for D/A treatment at this time. Mom has no questions for this TICKET WRITER today and aware that CPS digital forensics investigator will conduct assessment and discuss plan for baby boy Ashleigh w/mom and FOB Tuesday. NELLY Roach
[2021-08-15 18:00] LABS: Hemoglobin 6.2 g/dL (12.0-16.0)
[2021-08-15 18:01] LABS: Hematocrit 18.4 % (36-46)
[2021-08-15 20:53] VITALS: BP 151/93; PULSE 112
[2021-08-15] MEDS: LABETALOL 100 MG TABLET PO (20:53)
[2021-08-15 21:30] VITALS: BP 147/86; PULSE 101
[2021-08-16] MEDS: TRAMADOL 50 MG TABLET 100 MG PO ×2 (02:28→12:24)
--- NOTE | 2021-08-16 08:32 | PM.OBDS.1 ---
Discharge Providers Provider Date of admission: 08/13/21 02:13 Discharge Date: 08/16/21 Consults: 08/13/21 07:09 Consult to Business Planner Routine Comment: Consult to GUN STRIPER - Director Behavioral Health Routine Comment: 08/13/21 19:32 Consult to Dietitian, Adult Routine Comment: Reason For Exam: No teeth Discharge provider: Brandi Roe MD Summary Hospital Course Date Patient Seen: 08/16/21 Time Patient Seen: 08:33 Diagnoses: Prior section, sterilization, acute blood loss anemia, -induced hypertension, urinary tract infection Hospital Course: Patient arrived on Labor and delivery in active labor with no care. She appeared to have -induced hypertension. She underwent a repeat low-transverse section and bilateral tubal ligation. She had significant anemia post delivery that required 2 units blood. Patient is now ambulatory. She is passing gas. She is not nauseated. She denies headaches, scotomata, epigastric pain. She is bottle-feeding the baby who is on hold for evaluation for safety to be sent home with mother. Peripartum Data Infant Delivery Method: Section (Repeat with bilateral tubal ligation) complications: transfusion [place] 1: Gender: Male Disposition of : other (On hold for social work evaluation) Discharge Diagnosis (1) Delivery by section for breech presentation: Status: Acute (2) Acute blood loss anemia: Status: Acute (3) Sterilization: Status: Acute (4) Urinary tract infection: Status: Acute (5) induced hypertension: Status: Acute Status at Discharge Cognitive/behavioral status at discharge: oriented Functional status at discharge: independent ambulation Overall status at discharge: patient is progressing back to baseline Time Spent with Patient Time attestation: Total time spent providing and/or coordinating discharge services: Time spent: Less than 30 minutes Objective Labs Result Diagrams: 08/15/21 17:50 08/14/21 23:00 Labs: Laboratory Results - last 24 hr 08/15/21 17:50 Hgb 6.2 L* Hct 18.4 L* Exam Vital Signs (past 8 hours): Blood pressure 117/74, pulse of 86, temperature 99? Oxygen Delivery Method Room Air Narrative Exam Narrative: Patient's abdomen is soft, nontender. Uterus is firm, at U, nontender. Dressing is clean, dry, intact. Mild lochia. Extremities with trace edema and nontender. Patient's blood type is O positive, she is rubella nonimmune so will received rubella vaccine and Tdap prior to discharge. Discharge Plan Discharge Plan Patient Disposition: Home Discharge orders & Medications Prescriptions: New tramadol 50 mg Tablet 100 mg PO QID PRN (Reason: Pain, Moderate (4-6)) Qty: 20 0RF nitrofurantoin monohyd/m-cryst [Macrobid] 100 mg Capsule 100 mg PO BID Qty: 8 0RF No Action No Known Home Medications 0RF Follow up/Referrals: Lizbeth Burris MD [Physician] - 08/19/21 Diet/Activity/Treatments Diet: Regular Activity: Nothing in vagina for 6 weeks, no lifting over 20 lb for 6 weeks Skin/Wound/Dressing Care Report to your healthcare provider any signs of infection, such as:: chills, fever and increased pain Dressing: Dressing will be removed at your postop visit
[2021-08-16] MEDS: NITROFURANTOIN ER 100 MG CAPSULE PO (09:18)
[2021-08-16] MEDS: PRENATAL VIT,CALC/IRON/FOLIC 1 TABLET 1 TAB PO (09:18)
[2021-08-16] MEDS: DOCUSATE 100 MG CAPSULE PO (09:18)
--- NOTE | 2021-08-16 10:48 | CM.SWNOTE ---
SHEARER HELPER spoke to and confirms that MOB and baby boy are medically stable currently but awaiting CPS investigation tomorrow 08/17/21 when CPS staff available to complete. [facility] currently has no safe identified d/c plan or resources in place for baby boy at discharge and CPS to determine if baby safe for d/c with MOB or possibly FOB who lives in [place] or other placement for safety. Plan: SHEARER HELPER to follow tomorrow for confirmation of CPS assigned SW to complete investigation 08/17/21 to determine if baby boy can safely d/c home with MOB or FOB or other placement needed. NELLY Zavaleta
== END 2021-08-16 12:38 | disposition home or self-care (01) | DRG 783 ==
PROVIDERS: Obstetrics & Gynecology; Specialist; Admitting Provider Nurse Practitioner Obstetrics & Gynecology; Family Provider Family Medicine; Referring Provider Nurse Practitioner Obstetrics & Gynecology; Visit Provider Nurse Practitioner Obstetrics & Gynecology
PROC: 10D00Z1 Extraction of Products of Conception, Low, Open Approach (ICD-10-PCS; CPT 59514; principal; 2021-08-13 04:45)
DX: O64.8XX0 Obstructed labor due to other malposition and malpresentation, not applicable or unspecified (principal); O60.14X0 Preterm labor third trimester with preterm delivery third trimester, not applicable or unspecified; D62 Acute posthemorrhagic anemia; O23.43 Unspecified infection of urinary tract in pregnancy, third trimester; N39.0 Urinary tract infection, site not specified; O99.324 Drug use complicating childbirth; Z30.2 Encounter for sterilization; B96.89 Other specified bacterial agents as the cause of diseases classified elsewhere; O13.4 Gestational [pregnancy-induced] hypertension without significant proteinuria, complicating childbirth; O99.02 Anemia complicating childbirth; B96.20 Unspecified Escherichia coli [E. coli] as the cause of diseases classified elsewhere; F19.10 Other psychoactive substance abuse, uncomplicated; O99.214 Obesity complicating childbirth; E66.9 Obesity, unspecified; Z37.0 Single live birth; Z3A.35 35 weeks gestation of pregnancy; O99.334 Smoking (tobacco) complicating childbirth; F17.210 Nicotine dependence, cigarettes, uncomplicated; Z20.822 Contact with and (suspected) exposure to COVID-19
CPT/HCPCS: 36415; 36430; 58611; 59025; 59050; 59514; 76815; 80048; 80053; 80055; 80305; 81001; 82570; 84156; 84450; 84550; 85014; 85018; 85025; 86704; 86850; 86900; 86901; 87077; 87086; 87186; 87635; 87653; C9803; P9016; G0379; J0360; J1756; J1885; J2250; J2274; J2405; J2590; J3010

== ENCOUNTER 2021-08-17 20:15 | Inpatient (IN) | payer MEDICAID, OTHER, SELFPAY ==
[2021-08-17] VITALS (13 sets, daily range): BP systolic 139–175; BP diastolic 67–83; PULSE 116–130; RESP 21–38; TEMP 37.6–39.1; O2SAT 97–100
--- NOTE | 2021-08-17 20:47 | DI.US.S_ITS ---
PROCEDURE: US PELVIC COMPLETE INDICATIONS: severe pain, post day #4 TECHNIQUE: Real-time scanning was performed of the pelvic organs, with image documentation. Additional endovaginal scanning was necessary due to incomplete visualization of the adnexal and endometrial structures by transabdominal scanning. COMPARISON: None. FINDINGS: Uterus: Uterus is anteverted and measures 14.0 x 7.3 x 10.2 cm compatible with uterus. The myometrium is homogeneous The endometrium measures 17.4 mm combined thickness. Ovaries: Ovaries are not well visualized and cannot be evaluated. There is a 15.2 x 7.8 x 8.5 centimeter complex fluid collection in the pelvis which may represent hematoma/seroma. Other: No pathologic free abdominal or pelvic fluid. IMPRESSION: 1. uterus. 2. Ovaries not visualized and cannot be evaluated. 3. Large complex fluid collection in the pelvis which may represent hematoma. Dictated by: Yarelis Jurado MD, PhD on 08/17/2021 at 21:40 Approved by: Yarelis Jurado MD, PhD on 08/17/2021 at 21:43 We strive to produce accurate, complete, and clear reports of imaging services. To assist us in improving patient care, this report was composed using standard report templates and voice recognition software. Therefore, it may contain abnormal punctuation, misrecognitions, insertions and/or omissions. Occasional wrong-word or sound-alike substitutions may occur. Though we review the report and make efforts to correct it, we do recommend that the report be read carefully in proper context to recognize any text inaccuracies.
[2021-08-17 20:51] LABS: Add Manual Diff / Slide Review NO; Basophils Absolute Auto 0 /uL (0-100); Basophils Percent Auto 0.3 % (0-2); Eosinophils Absolute Auto 200 /uL (0-450); Eosinophils Percent Auto 1.7 % (2-4); Hematocrit 22.7 % (36-46); Hemoglobin 7.5 g/dL (12.0-16.0); Lymphocytes Absolute Auto 1100 /uL (1100-4500); Lymphocytes Percent Auto 7.9 % (25-40); Mean Corpuscular HGB Conc 33.1 % (30-36); Mean Corpuscular Hemoglobin 28.2 PG (26-34); Mean Corpuscular Volume 85.2 fL (80-100); Monocytes Absolute Auto 800 /uL (0-900); Monocytes Percent Auto 6.2 % (3-14); Neutrophils Absolute Auto 11400 /uL (1500-7000); Neutrophils Percent Auto 83.9 % (50-75); Platelet Count 432 X10^3/uL (150-400); Red Blood Cell Count 2.67 X10^6/uL (4.0-5.2); Red Cell Distribution Width 15.9 % (11.6-14.8); White Blood Cell Count 13.6 X10^3/uL (4.5-11.0)
--- NOTE | 2021-08-17 20:53 | ED.PREGNANCY ---
HPI - General Chief complaint: Urogenital-Female Stated complaint: COMPLICATIONS WITH C SECTION Time Seen by Provider: 08/17/21 20:42 Source: patient Mode of arrival: Ambulatory History of Present Illness HPI Narrative: Patient is a 31-year-old female status post and tubal ligation, on 08/13/2021 postoperatively she was anemic with hemoglobin of 6 requiring 2 units of PRBC transfusion. Today she presents with lower abdominal pain and tachycardia. She has more pain on the left side than the right side. She says that she is still bleeding but she does not report extreme heavy bleeding. 08/15/21 Discharge hemoglobin and hematocrit 6.2 and 18.4 she denies fever. She says that she is extremely weak and tired. No nausea or vomiting. He says he she gets little dizzy and lightheaded when she stands. She has some shortness of breath. She denies any chest pain. Abnormal foul smell number discharge her Diagnosed with E coli UTI placed on Macrobid at discharge, she states that she has taken it. She was positive for methamphetamine however when I question her about this she states that she has not used since she gave . Related Data Home Medications Medication Instructions Recorded Confirmed No Known Home Medications 05/28/21 08/13/21 Previous Rx's Medication Instructions Recorded nitrofurantoin 100 mg PO BID #8 cap 08/16/21 monohydrate/macrocrystals 100 mg capsule (Macrobid) tramadol 50 mg tablet 100 mg PO QID PRN #20 tab 08/16/21 Allergies Allergy/AdvReac Type Severity Reaction Status Date / Time diphenhydramine Allergy Severe Anaphylaxis Verified 08/17/21 20:45 [From Benadryl] cephalexin [CEPHALEXIN] Allergy Intermediate HIVES Verified 08/17/21 20:45 ibuprofen Allergy Intermediate Anaphylaxis Verified 08/17/21 20:45 codeine Allergy Mild Hives Verified 08/17/21 20:45 latex Allergy Unknown Verified 08/17/21 20:45 levofloxacin Allergy Unknown Verified 08/17/21 20:45 morphine Allergy Unknown Verified 08/17/21 20:45 oxycodone Allergy Unknown Verified 08/17/21 20:45 Penicillins Allergy Unknown Verified 08/17/21 20:45 procaine Allergy Unknown Verified 08/17/21 20:45 Review of Systems Review of Systems ROS Unobtainable: All systems reviewed & are unremarkable except as noted in HPI and below Constitutional Constitutional: Reports body ache(s) and Reports chills Eyes Eyes: Denies loss of vision ENT Ears, Nose, Mouth, and Throat: Denies vertigo and Reports dizziness Cardiovascular Cardiovascular: Denies chest pain, Denies irregular heart rhythm, Reports palpitations and Reports dyspnea on exertion Respiratory Respiratory: Reports dyspnea on exertion Gastrointestinal Gastrointestinal: Reports as per HPI and Reports abdominal pain Genitourinary Genitourinary: Reports as per HPI Musculoskeletal Musculoskeletal: Denies back pain and Reports myalgias Neurologic Neurologic: Denies vertigo, Reports dizziness and Denies loss of vision Endocrine Endocrine: Reports palpitations Exam Initial Vital Signs Initial Vital Signs: Vital Signs Temperature 99.6 F 08/17/21 20:23 Pulse Rate 126 H 08/17/21 20:23 Respiratory Rate 24 08/17/21 20:23 Blood Pressure 140/77 08/17/21 20:23 Pulse Oximetry 100 08/17/21 20:23 GENERAL: Pale 31-year-old female does not appear well HEENT: Head atraumatic,EOMI, pupils reactive, CARDIOVASCULAR: Tachycardic regular no murmur RESPIRATORY: Breath sounds equal bilaterally, no wheezes rales or rhonchi. ABDOMEN: Soft, abdomen extremely tender lower abdomen more on left than the right PELVIC: She does have mild bleeding some tissue no significant blood clots EXTREMITIES: Normal range of motion, no clubbing or edema. Neurovascularly intact NEUROLOGICAL: Alert and oriented x4.Normal gait and speech. SKIN: Incision site dressing is placed it is not saturated no significant erythema Course Orders Ordered: ED Orders 08/17/21 22:48 Urinalysis and Microscopic Stat Urine Culture Stat 08/17/21 23:30 Transfusion Reaction Stat 08/18/21 01:00 CBC Auto Diff [Complete Blood Count AUTO DIFF] Stat Lactate (Lactic Acid) Stat Clindamycin Phosphate (Cleocin) 900 mg in 50 mls @ 50 mls/hr IV Q8H FELIZ Last Admin: 08/18/21 06:36 Dose: 50 mls/hr Documented by: DIMITRY Discontinued Medications Acetaminophen (Acetaminophen 325 Mg Tablet) 975 mg PO NOW ONE Stop: 08/17/21 22:25 Last Admin: 08/17/21 22:29 Dose: 975 mg Documented by: DIMITRY Acetaminophen (Acetaminophen 325 Mg Tablet) 975 mg PO NOW ONE Stop: 08/18/21 04:01 Last Admin: 08/18/21 04:08 Dose: 975 mg Documented by: DIMITRY Gentamicin Sulfate 503 mg/ (Sodium Chloride) 112.575 mls @ 112.575 mls/hr IV NOW ONE Stop: 08/17/21 22:58 Clindamycin Phosphate (Cleocin) 900 mg in 50 mls @ 50 mls/hr IV NOW ONE Stop: 08/17/21 23:57 Last Infusion: 08/18/21 00:19 Dose: 0 mls/hr Documented by: Admin: 08/17/21 23:13 Dose: 50 mls/hr Documented by: DIMITRY Sodium Chloride (Normal Saline 0.9%) 1,000 mls @ 1,000 mls/hr IV BOLUS ONE Stop: 08/17/21 23:58 Last Infusion: 08/18/21 02:05 Dose: 0 mls/hr Documented by: Admin: 08/17/21 23:19 Dose: 1,000 mls/hr Documented by: DIMITRY Gentamicin Sulfate 530 mg/ (Sodium Chloride) 113.25 mls @ 113.25 mls/hr IV NOW ONE Stop: 08/17/21 23:26 Last Infusion: 08/18/21 01:45 Dose: 0 mls/hr Documented by: Admin: 08/18/21 00:20 Dose: 113.25 mls/hr Documented by: DIMITRY Sodium Chloride (Normal Saline 0.9%) 1,000 mls @ 1,000 mls/hr IV BOLUS ONE Stop: 08/18/21 01:40 Last Infusion: 08/18/21 06:35 Dose: 0 mls/hr Documented by: Admin: 08/18/21 02:08 Dose: 1,000 mls/hr Documented by: DIMITRY Vital Signs Vital signs: Vital Signs - 8 hr 08/18/21 00:09 08/18/21 00:21 Temperature 101.7 F H 101.7 F H Pulse Rate 108 H Respiratory Rate 28 H Pulse Oximetry 98 MDM - OB/Uterine Contractions Lab Data Result diagrams: 08/18/21 01:00 08/17/21 20:35 Labs: Lab Results 1108/17/21 08/17/21 Range/Units 20:35 20:35 20:35 WBC 13.6 H (4.5-11.0) X10^3/uL RBC 2.67 L (4.0-5.2) X10^6/uL Hgb 7.5 L (12.0-16.0) g/dL Hct 22.7 L (36-46) % MCV 85.2 (80-100) fL MCH 28.2 (26-34) PG MCHC 33.1 (30-36) % RDW 15.9 H (11.6-14.8) % Plt Count 432 H (150-400) X10^3/uL Neut % (Auto) 83.9 H (50-75) % Lymph % (Auto) 7.9 L (25-40) % [place] % (Auto) 6.2 (3-14) % Eos % (Auto) 1.7 L (2-4) % Baso % (Auto) 0.3 (0-2) % Neut # (Auto) 99834 H (1624-5238) /uL Lymph # (Auto) 1100 (7577-2594) /uL [place] # (Auto) 800 (0-900) /uL Eos # (Auto) 200 (0-450) /uL Baso # (Auto) 0 (0-100) /uL Sodium 136 L (137-145) mmol/L Potassium 3.6 (3.4-5.1) mmol/L Chloride 102 (98-107) mmol/L Carbon Dioxide 26 (22-32) mmol/L BUN 7 (7-17) mg/dL Creatinine 0.70 (0.52-1.04) mg/dL Estimated GFR > 60.0 (>60) mL/min BUN/Creatinine Ratio 10.0 (6-22) Glucose 121 H (70-100) mg/dL Lactate 2.4 H (0.7-2.1) mmol/L Calcium 8.7 (8.4-10.2) mg/dL Total Bilirubin 0.8 (0.2-1.3) mg/dL AST 31 (14-36) IU/L ALT 20 (<35) IU/L Alkaline Phosphatase 128 H (38-126) U/L Total Protein 6.6 (6.3-8.2) g/dL Albumin 3.4 L (3.5-5.0) g/dL Globulin 3.2 (1.7-4.1) g/dL Albumin/Globulin Ratio 1.1 (1.0-2.8) Procalcitonin 0.08 (<0.5) ng/mL HCG, Quant Cancelled Urine Color Urine Appearance Urine pH (4.5-8.0) Ur Specific [place] (1.000-1.035) Urine Protein (Negative) Urine Glucose (UA) (Negative) g/dL Urine Ketones (NEGATIVE) Urine Occult Blood (Negative) Urine Nitrate (Negative) Urine Bilirubin (NEGATIVE) Urine Urobilinogen (0.2) E.U./dL Ur Leukocyte Esterase (NEGATIVE) Urine RBC (0-5/HPF) Urine WBC (0-5/HPF) Ur Squamous Epith Cells (0-5/HPF) Urine Bacteria (None) Ur Culture Indicated? U Opiates 300ng/mL cut (Negative) Ur Oxycodone Screen (Negative) Urine Methadone Screen (Negative) Ur Barbiturates Screen (Negative) U Tricyclic Antidepress (Negative) Ur Phencyclidine Scrn (Negative) Ur Amphetamines Screen (Negative) U Methamphetamines Scrn (Negative) Ur MDMA Scrn (Ecstasy) (Negative) U Benzodiazepines Scrn (Negative) Urine Cocaine Screen (Negative) U Marijuana (THC) Screen (Negative) SARS-CoV-2 (PCR) (Negative) Blood Type Antibody Screen Crossmatch Transfusion React Rpt Donor Unit # Lab Clerical Err Check Pre-Trans Vis Hemolysis Post-Trans Blood Type Post-Tx Visible Hemolys 08/17/21 08/17/21 08/17/21 Range/Units 20:35 20:35 22:27 WBC (4.5-11.0) X10^3/uL RBC (4.0-5.2) X10^6/uL Hgb (12.0-16.0) g/dL Hct (36-46) % MCV (80-100) fL MCH (26-34) PG MCHC (30-36) % RDW (11.6-14.8) % Plt Count (150-400) X10^3/uL Neut % (Auto) (50-75) % Lymph % (Auto) (25-40) % [place] % (Auto) (3-14) % Eos % (Auto) (2-4) % Baso % (Auto) (0-2) % Neut # (Auto) (9877-8673) /uL Lymph # (Auto) (9230-2404) /uL [place] # (Auto) (0-900) /uL Eos # (Auto) (0-450) /uL Baso # (Auto) (0-100) /uL Sodium (137-145) mmol/L Potassium (3.4-5.1) mmol/L Chloride (98-107) mmol/L Carbon Dioxide (22-32) mmol/L BUN (7-17) mg/dL Creatinine (0.52-1.04) mg/dL Estimated GFR (>60) mL/min BUN/Creatinine Ratio (6-22) Glucose (70-100) mg/dL Lactate (0.7-2.1) mmol/L Calcium (8.4-10.2) mg/dL Total Bilirubin (0.2-1.3) mg/dL AST (14-36) IU/L ALT (<35) IU/L Alkaline Phosphatase (38-126) U/L Total Protein (6.3-8.2) g/dL Albumin (3.5-5.0) g/dL Globulin (1.7-4.1) g/dL Albumin/Globulin Ratio (1.0-2.8) Procalcitonin (<0.5) ng/mL HCG, Quant Urine Color Urine Appearance Urine pH (4.5-8.0) Ur Specific [place] (1.000-1.035) Urine Protein (Negative) Urine Glucose (UA) (Negative) g/dL Urine Ketones (NEGATIVE) Urine Occult Blood (Negative) Urine Nitrate (Negative) Urine Bilirubin (NEGATIVE) Urine Urobilinogen (0.2) E.U./dL Ur Leukocyte Esterase (NEGATIVE) Urine RBC (0-5/HPF) Urine WBC (0-5/HPF) Ur Squamous Epith Cells (0-5/HPF) Urine Bacteria (None) Ur Culture Indicated? U Opiates 300ng/mL cut Negative (Negative) Ur Oxycodone Screen Negative (Negative) Urine Methadone Screen Negative (Negative) Ur Barbiturates Screen Negative (Negative) U Tricyclic Antidepress Negative (Negative) Ur Phencyclidine Scrn Negative (Negative) Ur Amphetamines Screen Negative (Negative) U Methamphetamines Scrn Negative (Negative) Ur MDMA Scrn (Ecstasy) Negative (Negative) U Benzodiazepines Scrn Negative (Negative) Urine Cocaine Screen Negative (Negative) U Marijuana (THC) Screen Positive H (Negative) SARS-CoV-2 (PCR) Negative (Negative) Blood Type O Positive Antibody Screen Negative Crossmatch See Detail Transfusion React Rpt Donor Unit # Lab Clerical Err Check Pre-Trans Vis Hemolysis Post-Trans Blood Type Post-Tx Visible Hemolys 08/17/21 08/17/21 08/17/21 Range/Units 22:48 22:51 23:30 WBC (4.5-11.0) X10^3/uL RBC (4.0-5.2) X10^6/uL Hgb (12.0-16.0) g/dL Hct (36-46) % MCV (80-100) fL MCH (26-34) PG MCHC (30-36) % RDW (11.6-14.8) % Plt Count (150-400) X10^3/uL Neut % (Auto) (50-75) % Lymph % (Auto) (25-40) % [place] % (Auto) (3-14) % Eos % (Auto) (2-4) % Baso % (Auto) (0-2) % Neut # (Auto) (2639-3738) /uL Lymph # (Auto) (6182-2822) /uL [place] # (Auto) (0-900) /uL Eos # (Auto) (0-450) /uL Baso # (Auto) (0-100) /uL Sodium (137-145) mmol/L Potassium (3.4-5.1) mmol/L Chloride (98-107) mmol/L Carbon Dioxide (22-32) mmol/L BUN (7-17) mg/dL Creatinine (0.52-1.04) mg/dL Estimated GFR (>60) mL/min BUN/Creatinine Ratio (6-22) Glucose (70-100) mg/dL Lactate 1.1 (0.7-2.1) mmol/L Calcium (8.4-10.2) mg/dL Total Bilirubin (0.2-1.3) mg/dL AST (14-36) IU/L ALT (<35) IU/L Alkaline Phosphatase (38-126) U/L Total Protein (6.3-8.2) g/dL Albumin (3.5-5.0) g/dL Globulin (1.7-4.1) g/dL Albumin/Globulin Ratio (1.0-2.8) Procalcitonin (<0.5) ng/mL HCG, Quant Urine Color Dark yellow Urine Appearance Clear Urine pH 7.5 (4.5-8.0) Ur Specific [place] <=1.005 (1.000-1.035) Urine Protein Trace H (Negative) Urine Glucose (UA) Negative (Negative) g/dL Urine Ketones Negative (NEGATIVE) Urine Occult Blood 3+ H (Negative) Urine Nitrate Negative (Negative) Urine Bilirubin Negative (NEGATIVE) Urine Urobilinogen 1.0 (0.2) E.U./dL Ur Leukocyte Esterase Trace H (NEGATIVE) Urine RBC 10-30/hpf H (0-5/HPF) Urine WBC 0-1/hpf (0-5/HPF) Ur Squamous Epith Cells 1-5 /hpf (0-5/HPF) Urine Bacteria Few (2-10) H (None) Ur Culture Indicated? Specimen cultured U Opiates 300ng/mL cut (Negative) Ur Oxycodone Screen (Negative) Urine Methadone Screen (Negative) Ur Barbiturates Screen (Negative) U Tricyclic Antidepress (Negative) Ur Phencyclidine Scrn (Negative) Ur Amphetamines Screen (Negative) U Methamphetamines Scrn (Negative) Ur MDMA Scrn (Ecstasy) (Negative) U Benzodiazepines Scrn (Negative) Urine Cocaine Screen (Negative) U Marijuana (THC) Screen (Negative) SARS-CoV-2 (PCR) (Negative) Blood Type Antibody Screen Crossmatch Transfusion React Rpt No discrepancies Donor Unit # [id number] Lab Clerical Err Check No error found Pre-Trans Vis Hemolysis No Post-Trans Blood Type O positive Post-Tx Visible Hemolys No Imaging Data 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 US PELVIC COMPLETE ? INDICATIONS:? severe pain, post ? day #4 ? TECHNIQUE:? Real-time scanning was performed of the pelvic organs, with image documentation.? Additional endovaginal scanning was necessary due to incomplete visualization of the adnexal and endometrial structures by transabdominal scanning.? ? COMPARISON:? None. ? FINDINGS:? ?? Uterus:? Uterus is anteverted and measures 14.0 x 7.3 x 10.2 cm compatible with uterus. The myometrium is homogeneous The endometrium measures 17.4 mm combined thickness.? ? Ovaries:? Ovaries are not well visualized and cannot be evaluated.? There is a 15.2 x 7.8 x 8.5 centimeter complex fluid collection in the pelvis which may represent hematoma/seroma. ? Other:? No pathologic free abdominal or pelvic fluid. ? ? IMPRESSION:? ? 1. uterus. ? 2. Ovaries not visualized and cannot be evaluated.? ? 3. Large complex fluid collection in the pelvis which may represent hematoma.? ? ? Dictated by: Yarelis Jurado MD, PhD on 08/17/2021 at 21:40 ? ? Approved by: Yarelis Jurado MD, PhD on 08/17/2021 at 21:43 ? We strive to produce accurate, complete, and clear reports of imaging services. To assist us in improving patient care, this report was composed using standard report templates and voice recognition software. Therefore, it may contain abnormal punctuation, misrecognitions, insertions and/or omissions. Occasional wrong-word or sound-alike substitutions may occur. Though we review the report and make efforts to correct it, we do recommend that the report be read carefully in proper context to recognize any text inaccuracies. CT scan - abdomen/pelvis: Radiologist's Impression: PROCEDURE:? CT ABDOMEN PELVIS W CON ? INDICATIONS:? post op , complications with ? TECHNIQUE:? After the administration of intravenous contrast, axial sections acquired from the lung bases to the pubic symphysis.? Coronal and sagittal reformats were performed.? For radiation dose reduction, the following was used:? automated exposure control, adjustment of mA and/or kV according to patient size.? ? COMPARISON:? None. ? FINDINGS:? Image quality:? Excellent.? ? Lung bases:? Patchy airspace opacities noted in the right lung base which could represent ?atelectasis, aspiration pneumonia. ? Heart:? No significant findings. ? ABDOMEN: Liver:? Liver is enlarged to 23.7 centimeters in long axis. Gallbladder:? Unremarkable.? ? Biliary ducts:? Unremarkable.? ? Pancreas:? Unremarkable.? ? Spleen:? Unremarkable.? ? Adrenal Glands:? Unremarkable.? ? Kidneys and Ureters:? Unremarkable.? ? ? Stomach and Bowel:? Stomach, small bowel loops, and colon are unremarkable.? Peritoneum:? Large hyperdense fluid collection measuring approximately 14.6 by 17.3 x 18.6 centimeters noted in the anterior lower pelvis in the space of Retizus compatible with hematoma.? No definite F active extravasation identified.? Hematoma is producing mass effect on the urinary bladder.? Hematomas also noted in lower abdominal wall musculature.? No free air.? ? Ventral Wall: ? No hernias.? Abdominal Nodes:? No retroperitoneal or mesenteric adenopathy by size criteria.? Vessels:? Aorta and inferior vena cava are normal in size.? ? PELVIS: Pelvic Organs:? Uterus is enlarged compatible with state. Bladder:? Unremarkable.? ? Pelvic Nodes: No enlarged lymph nodes.? Miscellaneous: No hernias are seen. ? ? ? Bones:? Unremarkable.? IMPRESSION:? ? 1. Large hematoma involving the space of Retzius.? ? 2.? Large intramuscular hematoma involving the lower rectus abdominus musculature. ? 3. No definite active extravasation identified. ? 4. Patchy airspace opacities in the right lung base which could represent atelectasis, aspiration or pneumonia.? Dictated by: Yarelis Jurado MD, PhD on 08/17/2021 at 21:48 ?? MDM Narrative Medical decision making narrative: Patient's initial presentation overall does not appear well pale and tachycardic with extreme pain. Ultrasound shows probable hematoma CT confirms large hematoma. Hemoglobin initially 7.5 which is improved from previous. She actually starts developing low-grade fever 100.7 prior to infusion. Fever worsens during infusion therefore blood is stopped to ensure that there is no blood transfusion reaction however I do not believe so because she started developing fever prior to. She is given clindamycin and gentamicin gentamicin will cover her known UTI and both clinic and gentamicin will cover endometritis. She is given Tylenol for pain which seems to help and bring her fever down. Heart rate improves significantly with fluids and fever medication. 2200 Dr. Burris updated patient's symptoms test results CT results including large hematoma and hemoglobin hematocrit. At this time she recommend blood transfusion and reassessment. 0100 Dr. Burris updated on patient's symptoms of fever and probable sepsis. At this time will board patient in the emergency department until she can see her. Hemoglobin is rechecked and is lower at 6.5. She received less than 1 L of IV fluids this is unlikely to be diluted. 2 units of packed red blood cells are ordered. She develops fever again. Blood pressure and heart rate are significantly improved. She does have some vaginal bleeding but not hemorrhaging out. There was quite a large hematoma, which may be source of fever. 7am- Dr. Burris in ED to see and evaluate patient. Discharge Plan Departure Patient Disposition: Admitted As Inpatient Clinical Impression: Urinary tract infection, Sepsis, Pelvic hematoma in delivery, condition Admit Date/Time: 08/18/21 00:41 Admit Provider: Lizbeth Burris
[2021-08-17 21:07] LABS: Alanine Aminotransferase 20 IU/L (<35); Albumin 3.4 g/dL (3.5-5.0); Albumin Globulin Ratio 1.1 (1.0-2.8); Alkaline Phosphatase 128 U/L (38-126); Aspartate Aminotransferase 31 IU/L (14-36); Bilirubin Total 0.8 mg/dL (0.2-1.3); Blood Urea Nitrogen 7 mg/dL (7-17); Calcium 8.7 mg/dL (8.4-10.2); Carbon Dioxide 26 mmol/L (22-32); Chloride 102 mmol/L (98-107); Estimated Glomerular Filt Rate > 60.0 mL/min (>60); Globulin 3.2 g/dL (1.7-4.1); Glucose 121 mg/dL (70-100); HEMOLYSIS < 15 (0-50); Lactate (Lactic Acid) 2.4 mmol/L (0.7-2.1); Potassium 3.6 mmol/L (3.4-5.1); Sodium 136 mmol/L (137-145); Total Protein 6.6 g/dL (6.3-8.2)
--- NOTE | 2021-08-17 21:21 | DI.CT.S_ITS ---
PROCEDURE: CT ABDOMEN PELVIS W CON INDICATIONS: post op , complications with TECHNIQUE: After the administration of intravenous contrast, axial sections acquired from the lung bases to the pubic symphysis. Coronal and sagittal reformats were performed. For radiation dose reduction, the following was used: automated exposure control, adjustment of mA and/or kV according to patient size. COMPARISON: None. FINDINGS: Image quality: Excellent. Lung bases: Patchy airspace opacities noted in the right lung base which could represent atelectasis, aspiration pneumonia. Heart: No significant findings. ABDOMEN: Liver: Liver is enlarged to 23.7 centimeters in long axis. Gallbladder: Unremarkable. Biliary ducts: Unremarkable. Pancreas: Unremarkable. Spleen: Unremarkable. Adrenal Glands: Unremarkable. Kidneys and Ureters: Unremarkable. Stomach and Bowel: Stomach, small bowel loops, and colon are unremarkable. Peritoneum: Large hyperdense fluid collection measuring approximately 14.6 by 17.3 x 18.6 centimeters noted in the anterior lower pelvis in the space of Retizus compatible with hematoma. No definite F active extravasation identified. Hematoma is producing mass effect on the urinary bladder. Hematomas also noted in lower abdominal wall musculature. No free air. Ventral Wall: No hernias. Abdominal Nodes: No retroperitoneal or mesenteric adenopathy by size criteria. Vessels: Aorta and inferior vena cava are normal in size. PELVIS: Pelvic Organs: Uterus is enlarged compatible with state. Bladder: Unremarkable. Pelvic Nodes: No enlarged lymph nodes. Miscellaneous: No hernias are seen. Bones: Unremarkable. IMPRESSION: 1. Large hematoma involving the space of Retzius. 2. Large intramuscular hematoma involving the lower rectus abdominus musculature. 3. No definite active extravasation identified. 4. Patchy airspace opacities in the right lung base which could represent atelectasis, aspiration or pneumonia. Dictated by: Yarelis Jurado MD, PhD on 08/17/2021 at 21:48 Approved by: Yarelis Jurado MD, PhD on 08/17/2021 at 21:54
[2021-08-17 21:23] LABS: Procalcitonin 0.08 ng/mL (<0.5)
[2021-08-17 21:56] LABS: COVID19 - ADMIT (NP swab/PCR) Negative (Negative)
[2021-08-17] MEDS: ACETAMINOPHEN 325 MG TABLET 975 MG PO (22:29)
[2021-08-17 22:45] LABS: Reflexed Lactate in 2 Hours Y
[2021-08-17 22:55] LABS: Appearance Urine UA CLEAR; Bilirubin Urine UA NEGATIVE (NEGATIVE); Glucose Urine UA NEGATIVE (Negative); Ketones Urine UA NEGATIVE (NEGATIVE); Leukocyte Esterase Urine UA TRACE (NEGATIVE); Nitrite Urine UA NEGATIVE (Negative); Occult Blood Urine UA 3+ (Negative); Protein Urine UA TRACE (Negative); Specific Gravity Urine UA <=1.005 (1.000-1.035)
[2021-08-17 22:56] LABS: pH Urine UA 7.5 (4.5-8.0)
[2021-08-17 22:57] LABS: Color Urine UA Dark Yellow
[2021-08-17 22:58] LABS: RBC Urine 10-30/HPF (0-5/HPF)
[2021-08-17 22:59] LABS: Bacteria Urine Few (2-10); Culture Indicated Urine Specimen Cultured; Squamous Epithelial Cell Urine 1-5 /HPF (0-5/HPF); WBC Urine 0-1/HPF (0-5/HPF)
[2021-08-17] MEDS: CLINDAMYCIN 900 MG/50 ML PIGGYBACK 50 MG IV (23:13)
[2021-08-17] MEDS: SODIUM CHLORIDE 0.9% 1,000 ML 1000 ML IV (23:19)
[2021-08-17 23:23] LABS: Lactate 2HR (Lactic Acid Rflx) 1.1 mmol/L (0.7-2.1)
[2021-08-18] VITALS (32 sets, daily range): BP systolic 140–191; BP diastolic 73–103; PULSE 90–117; RESP 15–98; TEMP 36.5–38.7; O2SAT 14–99; BMI 30.9
[2021-08-18] MEDS: GENTAMICIN IV (00:20)
[2021-08-18] MEDS: SODIUM CHLORIDE 0.9% IV (00:20)
[2021-08-18 01:14] LABS: Add Manual Diff / Slide Review NO; Basophils Absolute Auto 0 /uL (0-100); Basophils Percent Auto 0.4 % (0-2); Eosinophils Absolute Auto 300 /uL (0-450); Eosinophils Percent Auto 2.2 % (2-4); Lymphocytes Absolute Auto 1500 /uL (1100-4500); Lymphocytes Percent Auto 12.6 % (25-40); Mean Corpuscular HGB Conc 33.3 % (30-36); Mean Corpuscular Hemoglobin 28.4 PG (26-34); Mean Corpuscular Volume 85.2 fL (80-100); Monocytes Absolute Auto 900 /uL (0-900); Monocytes Percent Auto 7.4 % (3-14); Neutrophils Absolute Auto 9500 /uL (1500-7000); Neutrophils Percent Auto 77.4 % (50-75); Platelet Count 373 X10^3/uL (150-400); White Blood Cell Count 12.2 X10^3/uL (4.5-11.0)
[2021-08-18 01:16] LABS: Hematocrit 19.6 % (36-46); Hemoglobin 6.5 g/dL (12.0-16.0)
[2021-08-18 01:25] LABS: Lactate (Lactic Acid) 0.8 mmol/L (0.7-2.1)
[2021-08-18 01:36] LABS: Ur Creatinine Normal (Normal); Ur Specific Gravity Normal (Normal); Urine pH Normal (Normal)
[2021-08-18 01:37] LABS: UR Morphine/Opiate cutoff 300 Negative (Negative); Urine Amphetamines Negative (Negative); Urine Barbiturates Negative (Negative); Urine Benzodiazepines Negative (Negative); Urine Cocaine Negative (Negative); Urine MDMA Negative (Negative); Urine Methadone Negative (Negative); Urine Methamphetamines Negative (Negative); Urine Oxycodone Negative (Negative); Urine Phencyclidine Negative (Negative); Urine Tetrahydrocannabinol Positive (Negative); Urine Tricyclic Antidepressant Negative (Negative)
[2021-08-18] MEDS: SODIUM CHLORIDE 0.9% 1,000 ML 1000 ML IV (02:08)
[2021-08-18] MEDS: ACETAMINOPHEN 325 MG TABLET 975 MG PO (04:08)
--- NOTE | 2021-08-18 04:16 | PC.NURSE ---
See vital signs flow sheet for pre-transfusion vital signs. Pt noted with temp of 101, Dr Goode notified. Tylenol given per order, ok to proceed with transfusion.
--- NOTE | 2021-08-18 04:56 | PC.NURSE ---
Pt reported that she had wet the bed. When assisted to commode, she reported dizziness and worsening exertional fatigue. Few drops of red blood noted to commode. Dr Goode notified.
--- NOTE | 2021-08-18 05:32 | PC.NURSE ---
Stand by assist for vaginal exam with Dr Goode. Small amt of red blood noted. Pt tolerated well.
[2021-08-18] MEDS: CLINDAMYCIN 900 MG/50 ML PIGGYBACK 50 MG IV ×3 (06:36→23:00)
--- NOTE | 2021-08-18 07:42 | P.HPOB_ITS ---
History of Present Illness History of Present Illness Reason for admission: other (Pelvic hematoma) Narrative: Anyi Hoffmann is a 31 year old female 3 para 3 who underwent an silver rgency section 5 days ago at 36 weeks gestation due to labor and history of 2 prior sections. Postoperatively her hematocrit dropped to 18. She received 2 units of packed r ed blood cells prior to discharge. She was asymptomatic. She returned to the emergency department last evening with lower abdominal pain and feeling dizzy, nauseous, and lightheaded. Hematocrit was 22.7. This morning it dropped to 19. She is receiving 2 units of packed red blood cells. Tachycardia has resolved. She is feeling better. A CT scan and pelvic ultrasound showed a large fluid collection consistent with a hematoma measuring 15 cm in the pelvis. During the blood transfusion she spiked a temperature to 102. She was started on clindamycin and gentamicin. She had a positive urine culture on admission with E coli. She went home with antibiotics and says cyst that she has taken them. FOR[facility]LY [facility] Medical History Marijuana abuse Smoker Surgical History (Updated 08/13/21 @ 04:24 by Lizbeth Burris MD) History of section Social History Smoking Status: Current every day smoker Meds Home Medications and Allergies Home Medications Medication Instructions Recorded Confirmed Type No Known Home Medications 05/28/21 08/13/21 History nitrofurantoin 100 mg PO BID #8 cap 08/16/21 Rx monohydrate/macrocrystals 100 mg capsule (Macrobid) tramadol 50 mg tablet 100 mg PO QID PRN #20 tab 08/16/21 Rx Allergies Allergy/AdvReac Type Severity Reaction Status Date / Time diphenhydramine Allergy Severe Anaphylaxis Verified 08/17/21 20:45 [From Benadryl] cephalexin [CEPHALEXIN] Allergy Intermediate HIVES Verified 08/17/21 20:45 ibuprofen Allergy Intermediate Anaphylaxis Verified 08/17/21 20:45 codeine Allergy Mild Hives Verified 08/17/21 20:45 latex Allergy Unknown Verified 08/17/21 20:45 levofloxacin Allergy Unknown Verified 08/17/21 20:45 morphine Allergy Unknown Verified 08/17/21 20:45 oxycodone Allergy Unknown Verified 08/17/21 20:45 Penicillins Allergy Unknown Verified 08/17/21 20:45 procaine Allergy Unknown Verified 08/17/21 20:45 Exam Vital Signs (past 8 hours): - 08/18/21 00:09 08/18/21 00:21 08/18/21 01:37 Temperature 101.7 F H 101.7 F H 99.6 F Pulse Rate 108 H Respiratory Rate 28 H Blood Pressure Pulse Oximetry 98 08/18/21 02:19 08/18/21 04:01 08/18/21 04:10 Temperature 99.5 F 101.0 F H 101 F H Pulse Rate 99 H 99 H 111 H Respiratory Rate 18 28 H 28 H Blood Pressure 180/91 H 180/91 H Pulse Oximetry 98 99 08/18/21 04:31 08/18/21 05:23 08/18/21 05:42 Temperature 101.6 F H 99.0 F Pulse Rate 95 H 95 H 95 H Respiratory Rate 26 H 25 H 25 H Blood Pressure 191/76 H 149/73 H 160/73 H Pulse Oximetry 97 08/18/21 05:45 08/18/21 05:59 Temperature 99.0 F 98.8 F Pulse Rate 92 H Respiratory Rate 27 H Blood Pressure 170/79 H Pulse Oximetry Oxygen Delivery Method Room Air Narrative Exam Narrative: Generally: Patient is sitting up on the gurney, in moderate distress secondary to lower abdominal pain Lungs: Clear to auscultation bilaterally Cardiovascular: Regular rate and rhythm Abdomen: Decreased bowel sounds. Guarding and rebound. Incision: Clean dry and intact with Aquacel dressing. Objective Labs Result Diagrams: 08/18/21 01:00 08/17/21 20:35 Labs: Laboratory Results - last 24 hr 08/17/21 08/17/21 08/17/21 20:35 20:35 20:35 WBC 13.6 H RBC 2.67 L Hgb 7.5 L Hct 22.7 L MCV 85.2 MCH 28.2 MCHC 33.1 RDW 15.9 H Plt Count 432 H Neut % (Auto) 83.9 H Lymph % (Auto) 7.9 L [place] % (Auto) 6.2 Eos % (Auto) 1.7 L Baso % (Auto) 0.3 Neut # (Auto) 39843 H Lymph # (Auto) 1100 [place] # (Auto) 800 Eos # (Auto) 200 Baso # (Auto) 0 Sodium 136 L Potassium 3.6 Chloride 102 Carbon Dioxide 26 BUN 7 Creatinine 0.70 Estimated GFR > 60.0 BUN/Creatinine Ratio 10.0 Glucose 121 H Lactate 2.4 H Calcium 8.7 Total Bilirubin 0.8 AST 31 ALT 20 Alkaline Phosphatase 128 H Total Protein 6.6 Albumin 3.4 L Globulin 3.2 Albumin/Globulin Ratio 1.1 Procalcitonin 0.08 HCG, Quant Cancelled Urine Color Urine Appearance Urine pH Ur Specific [place] Urine Protein Urine Glucose (UA) Urine Ketones Urine Occult Blood Urine Nitrate Urine Bilirubin Urine Urobilinogen Ur Leukocyte Esterase Urine RBC Urine WBC Ur Squamous Epith Cells Urine Bacteria Ur Culture Indicated? U Opiates 300ng/mL cut Ur Oxycodone Screen Urine Methadone Screen Ur Barbiturates Screen U Tricyclic Antidepress Ur Phencyclidine Scrn Ur Amphetamines Screen U Methamphetamines Scrn Ur MDMA Scrn (Ecstasy) U Benzodiazepines Scrn Urine Cocaine Screen U Marijuana (THC) Screen SARS-CoV-2 (PCR) Blood Type Antibody Screen Crossmatch Transfusion React Rpt Donor Unit # Lab Clerical Err Check Pre-Trans Vis Hemolysis Post-Trans Blood Type Post-Tx Visible Hemolys 08/17/21 08/17/21 08/17/21 20:35 20:35 22:27 WBC RBC Hgb Hct MCV MCH MCHC RDW Plt Count Neut % (Auto) Lymph % (Auto) [place] % (Auto) Eos % (Auto) Baso % (Auto) Neut # (Auto) Lymph # (Auto) [place] # (Auto) Eos # (Auto) Baso # (Auto) Sodium Potassium Chloride Carbon Dioxide BUN Creatinine Estimated GFR BUN/Creatinine Ratio Glucose Lactate Calcium Total Bilirubin AST ALT Alkaline Phosphatase Total Protein Albumin Globulin Albumin/Globulin Ratio Procalcitonin HCG, Quant Urine Color Urine Appearance Urine pH Ur Specific [place] Urine Protein Urine Glucose (UA) Urine Ketones Urine Occult Blood Urine Nitrate Urine Bilirubin Urine Urobilinogen Ur Leukocyte Esterase Urine RBC Urine WBC Ur Squamous Epith Cells Urine Bacteria Ur Culture Indicated? U Opiates 300ng/mL cut Negative Ur Oxycodone Screen Negative Urine Methadone Screen Negative Ur Barbiturates Screen Negative U Tricyclic Antidepress Negative Ur Phencyclidine Scrn Negative Ur Amphetamines Screen Negative U Methamphetamines Scrn Negative Ur MDMA Scrn (Ecstasy) Negative U Benzodiazepines Scrn Negative Urine Cocaine Screen Negative U Marijuana (THC) Screen Positive H SARS-CoV-2 (PCR) Negative Blood Type O Positive Antibody Screen Negative Crossmatch See Detail Transfusion React Rpt Donor Unit # Lab Clerical Err Check Pre-Trans Vis Hemolysis Post-Trans Blood Type Post-Tx Visible Hemolys 08/17/21 08/17/21 08/17/21 22:48 22:51 23:30 WBC RBC Hgb Hct MCV MCH MCHC RDW Plt Count Neut % (Auto) Lymph % (Auto) [place] % (Auto) Eos % (Auto) Baso % (Auto) Neut # (Auto) Lymph # (Auto) [place] # (Auto) Eos # (Auto) Baso # (Auto) Sodium Potassium Chloride Carbon Dioxide BUN Creatinine Estimated GFR BUN/Creatinine Ratio Glucose Lactate 1.1 Calcium Total Bilirubin AST ALT Alkaline Phosphatase Total Protein Albumin Globulin Albumin/Globulin Ratio Procalcitonin HCG, Quant Urine Color Dark yellow Urine Appearance Clear Urine pH 7.5 Ur Specific [place] <=1.005 Urine Protein Trace H Urine Glucose (UA) Negative Urine Ketones Negative Urine Occult Blood 3+ H Urine Nitrate Negative Urine Bilirubin Negative Urine Urobilinogen 1.0 Ur Leukocyte Esterase Trace H Urine RBC 10-30/hpf H Urine WBC 0-1/hpf Ur Squamous Epith Cells 1-5 /hpf Urine Bacteria Few (2-10) H Ur Culture Indicated? Specimen cultured U Opiates 300ng/mL cut Ur Oxycodone Screen Urine Methadone Screen Ur Barbiturates Screen U Tricyclic Antidepress Ur Phencyclidine Scrn Ur Amphetamines Screen U Methamphetamines Scrn Ur MDMA Scrn (Ecstasy) U Benzodiazepines Scrn Urine Cocaine Screen U Marijuana (THC) Screen SARS-CoV-2 (PCR) Blood Type Antibody Screen Crossmatch Transfusion React Rpt No discrepancies Donor Unit # [id number] Lab Clerical Err Check No error found Pre-Trans Vis Hemolysis No Post-Trans Blood Type O positive Post-Tx Visible Hemolys No 08/18/21 08/18/21 01:00 01:00 WBC 12.2 H RBC 2.30 L Hgb 6.5 L* Hct 19.6 L* MCV 85.2 MCH 28.4 MCHC 33.3 RDW 16.0 H Plt Count 373 Neut % (Auto) 77.4 H Lymph % (Auto) 12.6 L [place] % (Auto) 7.4 Eos % (Auto) 2.2 Baso % (Auto) 0.4 Neut # (Auto) 9500 H Lymph # (Auto) 1500 [place] # (Auto) 900 Eos # (Auto) 300 Baso # (Auto) 0 Sodium Potassium Chloride Carbon Dioxide BUN Creatinine Estimated GFR BUN/Creatinine Ratio Glucose Lactate 0.8 Calcium Total Bilirubin AST ALT Alkaline Phosphatase Total Protein Albumin Globulin Albumin/Globulin Ratio Procalcitonin HCG, Quant Urine Color Urine Appearance Urine pH Ur Specific [place] Urine Protein Urine Glucose (UA) Urine Ketones Urine Occult Blood Urine Nitrate Urine Bilirubin Urine Urobilinogen Ur Leukocyte Esterase Urine RBC Urine WBC Ur Squamous Epith Cells Urine Bacteria Ur Culture Indicated? U Opiates 300ng/mL cut Ur Oxycodone Screen Urine Methadone Screen Ur Barbiturates Screen U Tricyclic Antidepress Ur Phencyclidine Scrn Ur Amphetamines Screen U Methamphetamines Scrn Ur MDMA Scrn (Ecstasy) U Benzodiazepines Scrn Urine Cocaine Screen U Marijuana (THC) Screen SARS-CoV-2 (PCR) Blood Type Antibody Screen Crossmatch Transfusion React Rpt Donor Unit # Lab Clerical Err Check Pre-Trans Vis Hemolysis Post-Trans Blood Type Post-Tx Visible Hemolys Assessment & Plan Assessment & Plan narrative: Assessment: 31-year-old 3 para 3 with a large pelvic hematoma Lower abdominal pain Plan: Transfuse 1 more unit of packed red blood cells Exploratory laparotomy with evacuation of clot and ligation of bleeders The risks, benefits, and alternatives to the procedure were explained to the patient. The risks including bleeding, infection, injury to the bowel, bladder, or ureters. She understands these risks and agrees to proceed. A full par Q wa s held and consent form was signed. COVID-19 COVID-19 status: Negative Result date/Date tested (Pos, Neg/Pending): 08/17/21 Time Spent With Patient Time with patient: less than 30 minutes Critical Care time: I spent a total of [] minutes of critical care time on this patient's care today; this time is exclusive of procedural time.
[2021-08-18] MEDS: LACTATED RINGERS 1,000 ML 150 ML IV ×3 (10:55→16:22)
[2021-08-18 12:32] LABS: Hemoglobin 8.4 g/dL (12.0-16.0)
--- NOTE | 2021-08-18 13:34 | PM.PREOP ---
Pre-operative Note COVID-19 COVID-19 status: Negative Result date/Date tested (Pos, Neg/Pending): 08/17/21 Interval Note History & Physical reviewed/Exam performed by Physician: Yes Changes to H&P: No H&P completed within 30 days and has changed as indicated here:: 08/18/21
--- NOTE | 2021-08-18 14:21 | PC.NURSE ---
0930 blood transfusion started,Temp 99; BP elevated since last night in ER. 1120 Blood transfusion without adverse reaction; completed, H/H ordered. Notified infusion complete. 1245 Notified results of H/H 8.4 and 25.0. Hold transfusion
--- NOTE | 2021-08-18 14:37 | SUR.OPER ---
Supine on padded OR bed, head on pillow, arms secured on padded arm boards at <90 degrees abduction, legs uncrossed, safety belt at thigh, tape over blanket over lower legs.Gel pad placed between patients posterior thigh and urinary catheter tubing.
[2021-08-18] MEDS: TRANEXAMIC ACID 1,000 MG in SODIUM CHLORIDE 0.9% 100 ML 200 ML IV (15:25)
--- NOTE | 2021-08-18 15:42 | PM.GYNOP.1 ---
Operative Date/Time/Diagnoses Date of procedure: 08/18/21 Time of procedure: 15:42 Pre-op diagnosis: Intramuscular/Intra-abdominal hematoma Post-op diagnosis: same Procedure & Clinicians Procedure: Procedures Operation Date: 08/18/21 12:45 Actual Procedure Side Surgeon gricelda Jaquez and Evacuation of Clot Lizbeth Burris MD Indications: Intramuscular/intra-abdominal hematoma Decreasing hematocrit Surgeon: Lizbeth Burris Swimming Coach Or Instructor: Ralph Zazueta Anesthesia Type: General Operative Notes Findings: Large hematoma above the fascia and below the fascia extending into the space of Retzius Uterine incision intact without any bleeding Tubal ligation hemostatic Closure Type: primary Specimen(s): none Applied: catheter and drain(s) ( STORMY in the space of Retzius and muscle) Estimated blood loss (mL): 25 Blood products transfused: none Procedure in detail: After informed consent was obtained, the patient was taken to the operating room where she was placed in the dorsal supine position. After adequate general endotracheal anesthesia was achieved, she was prepped and draped in the usual sterile fashion. A Escalante catheter was placed into the bladder. The skin incision was opened as well as the subcutaneous layer, fascia, and peritoneum. There was some blood clot down around the bladder flap but the uterine incision was intact and hemostatic. The tubal ligation was inspected and was hemostatic. There appeared to be a large amount of clot in the space of Retzius and between the peritoneum and fascia. Some small clot had seeped into the subcutaneous layer. All of the layers were extensively irrigated with warm normal saline. Approximately 1500 cc worth of clot was evacuated from those areas. There were no active bleeding areas noted. The peritoneum was reapproximated with 2-0 Vicryl. A drain was placed into the space of Retzius and between the muscle and fascia. This was brought out on the patient's left side approximately 2 in left lateral and 1 cm above the incision. The fascia was reapproximated with 0 Vicryl. The subcutaneous layer was copiously irrigated with warm normal saline. Six simple interrupted sutures with 3-0 Vicryl were placed to reapproximate. The skin was closed with 4-0 Monocryl in a subcuticular fashion. A Telfa was placed around the drain which was sewn into place with silk. An Allevyn dressing was placed over the drain. An Aquacel was placed over the Pfannenstiel incision. Sponge, lap, and instrument counts were correct x2. The patient tolerated the procedure well, and was taken to PACU in stable condition. Complications: none Post-operative Condition: stable Disposition: PACU Plan for aftercare: To the center after recovery
[2021-08-18] MEDS: HYDROMORPHONE 2 MG INJ IV (16:21)
--- NOTE | 2021-08-18 16:55 | SUR.PHASEI ---
leaking noted on STORMY dressing of serosanguinous fluid upon discharge. wound dressing c/d/i.
--- NOTE | 2021-08-18 17:11 | PC.NURSE ---
1650 Patient returned for PACU, alert and oriented x3, O2 at 1l, intermittent cough.moving all extremities,Grenade with small drainage, Aquacel dressing in place transverse lie; noted small bloody drainage on L. side of aquacel dressing.is comforatible at this time.VSS.elevated BP. aware of drainage and grenade does not collapse to remvoe drainage from incisionl
--- NOTE | 2021-08-18 19:05 | PC.NURSE ---
Changed dressisng to L.bandage,saturated in drainagAva emptied 15 cc bloody drainage. not working efficiently; MD aware.abel catheter,patent,patient feeling much better.pads changed.Feeding babe.VSS.
[2021-08-18] MEDS: ACETAMINOPHEN 325 MG TABLET 650 MG PO (22:35)
[2021-08-18] MEDS: IBUPROFEN 600 MG TABLET PO (22:35)
[2021-08-18] MEDS: DOCUSATE 100 MG CAPSULE 200 MG PO (22:36)
[2021-08-19] VITALS (8 sets, daily range): BP systolic 130–158; BP diastolic 86–106; PULSE 83–101; RESP 16; TEMP 36.2–36.7; O2SAT 99
[2021-08-19] MEDS: GENTAMICIN 440 MG in SODIUM CHLORIDE 0.9% 100 ML 144 ML IV (00:06)
[2021-08-19] MEDS: HYDROMORPHONE 4 MG TABLET PO (00:35)
--- NOTE | 2021-08-19 00:49 | PC.NURSE ---
Pt coughing-hacking (heavy smoker) and causing abdominal pain -bandage leaking bright red blood/ Call to Dr. Roe V/O Dilaudid 4mg PO-pannis cleaned w 2 RNs, dressing changed and reenforced/towel in place to hold pressure-pt put into supine position, lights off, call-light within reach-baby out to the nursery to promote pt rest. Pain 4/10 when resting and not coughing. This RN will continue to assess.
[2021-08-19] MEDS: LACTATED RINGERS 1,000 ML 100 ML IV (03:22)
[2021-08-19 07:31] LABS: Add Manual Diff / Slide Review NO; Basophils Absolute Auto 0 /uL (0-100); Basophils Percent Auto 0.2 % (0-2); Eosinophils Absolute Auto 200 /uL (0-450); Eosinophils Percent Auto 2.2 % (2-4); Hematocrit 25.7 % (36-46); Hemoglobin 8.6 g/dL (12.0-16.0); Lymphocytes Absolute Auto 1700 /uL (1100-4500); Mean Corpuscular HGB Conc 33.4 % (30-36); Mean Corpuscular Hemoglobin 28.1 PG (26-34); Mean Corpuscular Volume 84.1 fL (80-100); Monocytes Absolute Auto 800 /uL (0-900); Monocytes Percent Auto 7.3 % (3-14); Neutrophils Absolute Auto 8000 /uL (1500-7000); Neutrophils Percent Auto 74.3 % (50-75); Platelet Count 345 X10^3/uL (150-400); Red Blood Cell Count 3.05 X10^6/uL (4.0-5.2); Red Cell Distribution Width 16.6 % (11.6-14.8); White Blood Cell Count 10.7 X10^3/uL (4.5-11.0)
[2021-08-19] MEDS: IBUPROFEN 600 MG TABLET PO ×2 (07:43→17:44)
[2021-08-19] MEDS: ACETAMINOPHEN 325 MG TABLET 650 MG PO ×2 (07:44→17:45)
[2021-08-19] MEDS: CLINDAMYCIN 900 MG/50 ML PIGGYBACK 50 MG IV ×2 (07:45→18:00)
[2021-08-19 07:57] LABS: BUN Creatinine Ratio 18.2 (6-22); Blood Urea Nitrogen 12 mg/dL (7-17); Calcium 7.9 mg/dL (8.4-10.2); Carbon Dioxide 24 mmol/L (22-32); Chloride 109 mmol/L (98-107); Estimated Glomerular Filt Rate > 60.0 mL/min (>60); Glucose 112 mg/dL (70-100); HEMOLYSIS < 15 (0-50); Potassium 3.5 mmol/L (3.4-5.1); Sodium 137 mmol/L (137-145)
--- NOTE | 2021-08-19 09:40 | PC.NURSE ---
Addendum entered by Claire Bae R.N. 08/19/21 11:02: 09:00 Pain reassessed, patient states she feels wonderful following administration of Tylenol and Ibuprofen. Patient is up and moving without assistance and tolerating well. Patient had a bowel movement with no complaints. Small leakage from urinary cath bag due to being uncapped. Patient encouraged to increase intake of fluids as her urine is concentrated. Original Note: 07:43 patient sitting up, holding and feeding baby a bottle. Patient c/o lower abdominal pain /, Tylenol and Ibuprofen given. Head to toe assessment performed. Dressing to lower abdomen intact with mild drainage noted. STORMY drain not draining, to be assessed by Dr. Burris. Patient is requesting to have urinary catheter removed. 08:15 Dr. Burris at bedside assessing lower abdomen dressing. Per Dr. Burris STORMY drain has been displaced and was unable to re-insert tube to correct position. STORMY drain removed and dressed with Allevyn dressing.
--- NOTE | 2021-08-19 11:18 | PC.NURSE ---
10:45 called and spoke with Dr. Burris's nurse Ailyn and left a message informing her of patients elevated blood pressure readings.
[2021-08-19 11:31] LABS: Gentamicin Random 2.3 ug/mL (1.0-8.0)
[2021-08-19] MEDS: LABETALOL 100 MG TABLET PO (12:11)
--- NOTE | 2021-08-19 13:14 | PM.PNPO.1 ---
Subjective Subjective Date Patient Seen: 08/19/21 Time Patient Seen: 08:15 Interval history: Patient is a 31-year-old 3 para 3 postop day # 1 status post exploratory laparotomy, evacuation of clot, and extensive irrigation. A drain was also placed into the pelvis. Overnight to the drains stopped working. She has had some drainage from the drain site but not from the tube itself. Her pain is well controlled. The urine is clear. She is tolerating a diet. No nausea or vomiting. Exam Vital Signs (past 8 hours): - 08/19/21 06:35 08/19/21 08:45 08/19/21 10:21 Temperature 97.1 F L Pulse Rate 96 H Respiratory Rate 16 Blood Pressure 151/103 H 158/106 H 147/97 H Pulse Oximetry 99 08/19/21 12:11 Temperature Pulse Rate Respiratory Rate Blood Pressure 130/91 H Pulse Oximetry Oxygen Delivery Method Nasal Cannula Oxygen Flow Rate 2 Narrative Exam Narrative: Generally: Patient is sitting up in bed, holding infant, no acute distress Lungs: Clear to auscultation bilaterally Cardiovascular: Regular rate and rhythm Abdomen: Soft, appropriately tender. Incisions: Aquacel dressing on the Pfannenstiel incision. The bandage over the drain was removed and replaced. The drain was found to be too far out so that the holes of the drain were outside the patient's skin. The drain was taken off of suction and was removed. The drain site was redressed. Extremities: Trace edema, negative Homans Objective Labs Result Diagrams: 08/19/21 06:47 08/19/21 06:47 Labs: Laboratory Results - last 24 hr 08/19/21 08/19/21 08/19/21 06:47 06:47 10:45 WBC 10.7 RBC 3.05 L Hgb 8.6 L Hct 25.7 L MCV 84.1 MCH 28.1 MCHC 33.4 RDW 16.6 H Plt Count 345 Neut % (Auto) 74.3 Lymph % (Auto) 16.0 L [place] % (Auto) 7.3 Eos % (Auto) 2.2 Baso % (Auto) 0.2 Neut # (Auto) 8000 H Lymph # (Auto) 1700 [place] # (Auto) 800 Eos # (Auto) 200 Baso # (Auto) 0 Sodium 137 Potassium 3.5 Chloride 109 H Carbon Dioxide 24 BUN 12 Creatinine 0.66 Estimated GFR > 60.0 BUN/Creatinine Ratio 18.2 Glucose 112 H Calcium 7.9 L Random Gentamicin 2.3 PFSH Medical History Marijuana abuse Smoker Surgical History (Updated 08/13/21 @ 04:24 by Lizbeth Burris MD) History of section Social History household members: significant other Smoking Status: Current every day smoker alcohol intake: former Assessment & Plan Post-op Postoperative Procedures: Procedures Operation Date: 08/18/21 12:45 Actual Procedure Side Surgeon p Exploratory Laparoscopy and Evacuation of Clot Lizbeth Burris MD Postoperative day: 1 Postoperative status: doing well Postoperative plan: ambulate Postoperative plan narrative: Discontinue Escalante catheter Begin labetalol 100 mg p.o. b.i.d. Continue IV antibiotics Quality VTE Deep Vein Thrombosis/Pulmonary Embolism Present on Admission: No
[2021-08-20] MEDS: GENTAMICIN 440 MG in SODIUM CHLORIDE 0.9% 100 ML 144 ML IV (00:22)
[2021-08-20] MEDS: IBUPROFEN 600 MG TABLET PO ×2 (00:23→08:04)
[2021-08-20] MEDS: ACETAMINOPHEN 325 MG TABLET 650 MG PO ×2 (00:23→08:02)
[2021-08-20 00:50] VITALS: TEMP 36.2
--- NOTE | 2021-08-20 01:05 | PC.NURSE ---
Addendum entered by Kely Wilson R.N. 08/20/21 04:17: correction 144mg/50 mls hr Original Note: Gent started @ 144l/hr on L AC/IV/flushed- mother calming baby boy and access to AC IV is intermittent while pt is bending arm-R hand IV infiltrated and was D/Issac @0030-pt has no pain or redness-slight edema extending up the forearm. Will cont to assess.
[2021-08-20] MEDS: CLINDAMYCIN 900 MG/50 ML PIGGYBACK 50 MG IV (03:30)
[2021-08-20] MEDS: LACTATED RINGERS 1,000 ML 100 ML IV (03:31)
[2021-08-20 05:56] VITALS: BP 174/96; PULSE 83; RESP 18; TEMP 36.6; O2SAT 99
--- NOTE | 2021-08-20 06:01 | PC.NURSE ---
pt became incontinent in her bed and large amount of straw colored urine on the floor and in the bed -housekeeping to the room to mop and sanitize-this RN wiped down, disinfected bed and changed bedding-pt up to shower and put on fresh peripad/underwear and robe. all garbages and linens emptied.
[2021-08-20 07:40] VITALS: BP 161/100; PULSE 85; RESP 18; TEMP 36.8
--- NOTE | 2021-08-20 07:49 | PC.NURSE ---
Nurse, notified of elevated BP.
[2021-08-20 08:01] VITALS: BP 161/100; PULSE 85
[2021-08-20] MEDS: LABETALOL 100 MG TABLET PO (08:01)
--- NOTE | 2021-08-20 10:00 | PC.NURSE ---
states she feels better denies feeling any pain only when coughing. up to toilet and ambulating well
--- NOTE | 2021-08-20 12:35 | PC.NURSE ---
denies any complaints at this time . up and about.
[2021-08-20 14:10] VITALS: BP 152/92; PULSE 88; RESP 18; TEMP 36.4
--- NOTE | 2021-09-16 13:13 | P.DS_ITS ---
History of Present Illness History of Present Illness Date Patient Seen: 08/20/21 Time Patient Seen: 08:30 Chief complaint: COMPLICATIONS WITH C SECTION Narrative: Patient is a 31-year-old who presented on August 18, 2021 through the emergency department with a pelvic hematoma after a repeat section. She was taken to surgery where of the hematoma was evacuated both intraperitoneal and in the muscle layer. She had a drain placed which was removed the next day. Her postoperative course was unremarkable. She was discharged home on August 20, 2021. She was afebrile. Her pain was well controlled. Discharge Providers Provider Date of admission: 08/18/21 00:41 Discharge Date: 08/20/21 Discharge provider: Lizbeth Burris MD Summary Hospital Course Discharge Diagnosis: Pelvic/intramuscular hematoma Exploratory laparotomy with evacuation of hematoma IV antibiotics Hospital Course: Patient is a 31-year-old who presented on August 18, 2021 to the emergency department with increased pain and feeling dizzy. She was found to have an intra peritoneal hematoma. She went to the operating room for an exploratory laparotomy with evacuation of the hematoma in the pelvis as well as in the muscle layer. A drain was placed in this was removed the next day. She was discharged home on August 20, 2021. Status at Discharge Cognitive/behavioral status at discharge: oriented Functional status at discharge: independent ambulation Overall status at discharge: patient is progressing back to baseline Time Spent with Patient Time spent: Less than 30 minutes Exam Vital Signs (past 8 hours): Oxygen Delivery Method Nasal Cannula Oxygen Flow Rate 2 Narrative Exam Narrative: Generally: A well-developed, well-nourished female, no acute distress Lungs: Clear to auscultation bilaterally Cardiovascular: Regular rate and rhythm Incision: Clean dry and intact with Aquacel dressing Extremities: 1+ edema, negative Homans Objective Labs Result Diagrams: 08/19/21 06:47 08/19/21 06:47 [facility] Medical History Marijuana abuse Smoker Surgical History History of section Social History household members: significant other Smoking Status: Current every day smoker alcohol intake: former Discharge Assessment & Plan Assessment and Plan Assessment: Postop day # 2 status post exploratory lap with evacuation of intraperitoneal/intramuscular hematoma Doing very well Plan of Treatment: Discharge to home Follow-up in 1 week for Aquacel dressing removal Discharge Plan Discharge Plan Patient Disposition: Home Provider Discharge Comment: Call with fever, chills, or redness or drainage a round the incisions, or bleeding vaginally more than a pad in an hour Tylenol 650 mg every 6 hours as needed Ibuprofen 600 mg every 6 hours as needed Discharge orders & Medications Prescriptions: New labetalol 200 mg tablet 200 mg PO BID Qty: 60 3RF Continued tramadol 50 mg Tablet 100 mg PO QID PRN (Reason: Pain, Moderate (4-6)) Qty: 20 0RF Discontinued nitrofurantoin monohyd/m-cryst [Macrobid] 100 mg Capsule 100 mg PO BID Qty: 8 0RF No Action sulfamethoxazole-trimethoprim [Bactrim DS] 800-160 mg tablet 2 tab PO BID Qty: 20 0RF Rx Instructions: Take 2 tabs every 12 hours for 5 days. Follow up/Referrals: Lizbeth Burris MD [Physician] - 1 Week (Appointment with on Tuesday at 3:45pm.) Diet/Activity/Treatments Diet: Regular Activity: No intercourse until bleeding has stopped Skin/Wound/Dressing Care Report to your healthcare provider any signs of infection, such as:: chills, fever, increased pain, unusual drainage and unusual redness Dressing: Do not remove Visit Report/Discharge Packet Instructions: DI for Exploratory Laparotomy, DI for Prescription Opioid Use Quality VTE Deep Vein Thrombosis/Pulmonary Embolism Present on Admission: No
== END 2021-08-20 16:10 | disposition home or self-care (01) | DRG 769 ==
LOC: ED 08-18 00:41 → AC 08-18 04:20 → LABOR 08-18 08:39
PROVIDERS: Admitting Provider Obstetrics & Gynecology; Emergency Provider Emergency Medicine; Family Provider Family Medicine; Referring Provider Emergency Medicine; Visit Provider Obstetrics & Gynecology
PROC: 0WCG0ZZ Extirpation of Matter from Peritoneal Cavity, Open Approach (ICD-10-PCS; CPT 59514; principal; 2021-08-18 12:45)
DX: O90.2 Hematoma of obstetric wound (principal); N39.0 Urinary tract infection, site not specified; R00.0 Tachycardia, unspecified; R10.9 Unspecified abdominal pain; B96.20 Unspecified Escherichia coli [E. coli] as the cause of diseases classified elsewhere; F17.210 Nicotine dependence, cigarettes, uncomplicated; Z20.822 Contact with and (suspected) exposure to COVID-19
CPT/HCPCS: 36415; 36430; 74177; 76830; 76856; 80048; 80053; 80170; 80305; 81001; 83605; 84145; 85014; 85018; 85025; 86078; 86850; 86900; 86901; 87040; 87086; 87635; 99285; C9803; P9016; J0330; J1100; J1170; J2250; J2405; J2704; J3010; Q9967

== ENCOUNTER → 2021-09-01 13:04 | Outpatient (CLI) | payer OTHER, MEDICAID, SELFPAY ==
[2021-08-18 03:49] VITALS: BMI 30.9
== END ==
PROVIDERS: Family Provider Family Medicine; PCP Family Medicine; Visit Provider Obstetrics & Gynecology
DX: L03.90 Cellulitis, unspecified (principal); O71.7 Obstetric hematoma of pelvis; A41.9 Sepsis, unspecified organism; O90.9 Complication of the puerperium, unspecified
CPT/HCPCS: 87070; 87075; 87077; 87186; 87205

== ENCOUNTER 2023-12-22 14:27 | Emergency (ER) | payer OTHER, MEDICAID, SELFPAY ==
[2021-08-18 03:49] VITALS: BMI 30.9
[2023-12-22 14:31] VITALS: BP 148/82; PULSE 103; RESP 18; TEMP 36.7; O2SAT 100; BMI 30.3
--- NOTE | 2023-12-22 15:07 | ED.SKABFB ---
HPI - Skin/Abscess/Foreign Bdy <Maria L Hurt PA-C - Last Filed: 12/22/23 15:16> General Chief complaint: Skin/Abscess/Foreign Body Stated complaint: red swollen blotch on left leg Time Seen by Provider: 12/22/23 14:42 Source: patient Mode of arrival: Ambulatory Limitations: no limitations History of Present Illness HPI narrative: Patient is a 33-year-old female who presents with 2 days of left lower extremity redness, warmth and pain. Reports waking on Tuesday morning with swelling of her left upper calf. yesterday her left lower extremity was red, warm, swollen and very painful. Today it has been much less painful but is still warm and red and swollen. She reports no known injury or break in the skin although she has been cleaning out an old motor home in wonders if she could have had a spider bite or other skin wound. Denies fever or chills. Has been clean for 2 years aside from marijuana, does not use any injection drugs. Denies history of blood clots. Did have a hematoma after her but chart review shows this was a post-csection pelvic hematoma with associated anemia and sepsis. She has had no recent immobilization, no hormones, no cancer, no travel. No history of DVT. Related Data Previous Rx's Medication Instructions Recorded tramadol 50 mg tablet 100 mg (2 x 50 mg) PO QID PRN 08/16/21 Pain, Moderate (4-6) #20 tabs labetalol 200 mg tablet 200 mg PO BID #60 tabs 08/20/21 sulfamethoxazole 800 1 tab PO Q12H skin infection #14 12/22/23 mg-trimethoprim 160 mg tablet tabs (Bactrim DS) Allergies Allergy/AdvReac Type Severity Reaction Status Date / Time diphenhydramine Allergy Severe Anaphylaxis Verified 08/17/21 20:45 [From Benadryl] Penicillins Allergy Severe Anaphylaxis Verified 08/19/21 15:41 cephalexin [CEPHALEXIN] Allergy Intermediate HIVES Verified 08/17/21 20:45 ibuprofen Allergy Intermediate Anaphylaxis Verified 08/17/21 20:45 codeine Allergy Mild Hives Verified 08/17/21 20:45 latex Allergy Unknown Verified 08/17/21 20:45 levofloxacin Allergy Unknown Verified 08/17/21 20:45 morphine Allergy Unknown Verified 08/17/21 20:45 oxycodone Allergy Unknown Verified 08/17/21 20:45 procaine Allergy Unknown Verified 08/17/21 20:45 Review of Systems <Maria L Hurt PA-C - Last Filed: 12/22/23 15:16> Review of Systems ROS Unobtainable: All systems reviewed & are unremarkable except as noted in HPI and below Patient History <Maria L Hurt PA-C - Last Filed: 12/22/23 15:16> Medical History Marijuana abuse Smoker Surgical History History of section Social History household members: significant other Smoking Status: Current every day smoker alcohol intake: former Smoking Status: Current every day smoker tobacco type: cigarettes alcohol intake frequency: other Substance Use Type: marijuana Exam <Maria L Hurt PA-C - Last Filed: 12/22/23 15:16> Narrative Exam Narrative: GENERAL: 33 year old patient appears stated age. Well-developed patient, in No acute distress. NEURO: AOx3. HEAD: Atraumatic. Normocephalic. EYES: Pupils equal round and reactive. Extraocular motions intact. No scleral icterus. No injection or drainage. ENT: Nose without bleeding or purulent drainage. RESPIRATORY: no increased work of breathing EXTREMITIES: area of tender erythematous induration over the medial and superior aspect of the left calf. The area is not fluctuant. There is an obvious focus of the induration with surrounding cellulitic skin changes. There is minimal tenderness in the posterior calf. There is diffuse swelling to the ankle. Strong DP pulse. Initial Vital Signs Initial Vital Signs: Vital Signs Temperature 98.1 F 12/22/23 14:31 Pulse Rate 103 H 12/22/23 14:31 Respiratory Rate 18 12/22/23 14:31 Blood Pressure 148/82 H 12/22/23 14:31 Pulse Oximetry 100 12/22/23 14:31 Oxygen Delivery Method Room Air 12/22/23 14:31 <Leslee Goode DO - Last Filed: 12/23/23 07:50> Initial Vital Signs Initial Vital Signs: Vital Signs Temperature 98.1 F 12/22/23 14:31 Pulse Rate 103 H 12/22/23 14:31 Respiratory Rate 18 12/22/23 14:31 Blood Pressure 148/82 H 12/22/23 14:31 Pulse Oximetry 100 12/22/23 14:31 Oxygen Delivery Method Room Air 12/22/23 14:31 Scores <Maria L Hurt PA-C - Last Filed: 12/22/23 15:16> Mia Criteria for DVT Active Cancer (Treatment within 6 months): No Bedridden recently >3 days or major surgery within 4 weeks: No Calf Swelling >3cm compared to other leg: No Collateral (nonvericose) superficial veins present: No Entire leg swollen: No Localized tenderness along the deep vein system: No Pitting edema, confined to symtomatic leg: No Paralysis, paresis, or recent plaster immobilization of ext: No Previously documented DVT: No Alternative dx to DVT as likely or more likely: Yes Mia criteria for DVT: -2 <Leslee Goode DO - Last Filed: 12/23/23 07:50> Mia Criteria for DVT Connor' criteria for DVT: -2 Course <Maria L Hurt PA-C - Last Filed: 12/22/23 15:16> Vital Signs Vital signs: Vital Signs - 8 hr 12/22/23 14:31 Temperature 98.1 F Pulse Rate 103 H Respiratory Rate 18 Blood Pressure 148/82 H Pulse Oximetry 100 Oxygen Delivery Method Room Air <Leslee Goode DO - Last Filed: 12/23/23 07:50> Vital Signs Vital signs: Vital Signs - 8 hr 12/22/23 14:31 Temperature 98.1 F Pulse Rate 103 H Respiratory Rate 18 Blood Pressure 148/82 H Pulse Oximetry 100 Oxygen Delivery Method Room Air MDM - Skin/Abscess/Foreign Bdy <Maria L Hurt PA-C - Last Filed: 12/22/23 15:16> MDM Narrative Medical decision making narrative: Multiple etiologies for patient's symptoms considered including, but not limited to: cellulitis, cellulitis with abscess, DVT Clinical presentation consistent with cellulitis. Point of care ultrasound shows cobblestoning, no fluid collection noted. Low suspicion for DVT based on factors listed above and obvious infectious symptoms. Patient has multiple allergies and these were reviewed prior to prescribing antibiotics. I will prescribe 7 days of Bactrim. Described the patient that if her symptoms are worsening after 48 hours antibiotics, she should come back to the emergency room for reassessment. If she develops any shortness of breath or chest pain she should also return. Patient does not have a current PCP for follow up. Encouraged to reestablish care. Provided positive reinforcement of 2 years sober. Patient's symptoms improved over duration of stay with above-stated therapies. Findings and discharge diagnosis discussed with patient/family followed by verbalization of understanding Return precautions discussed with patient/family whom verbalize understanding of diagnosis and plan Discharge Plan Departure Patient Disposition: Home Clinical Impression: Cellulitis Qualifiers: Site of cellulitis: extremity Site of cellulitis of extremity: lower extremity Laterality: left Qualified Code(s): L03.116 - Cellulitis of left lower limb Instructions: DI for Cellulitis -- Adult Activity Restrictions/Additional Instructions: *You have been diagnosed with Left lower extremity cellulitis. there is no evidence of abscess. I have prescribed a course of antibiotics. Make sure you take all the antibiotics even if you are feeling better. If the swelling and pain is getting worse after taking the antibiotics for 48 hours, Please return for reassessment as the antibiotics may not be working properly. *What to do: *Please continue to take your regular medications as directed. [x ] New medication prescriptions sent to your pharmacy: [facility] [ ] New medication written as a paper prescription [ ] No new medications given *Please follow up with your primary care provider in 2-3 days, call for an appointment. Let them know you were seen in the Emergency Department and that we ask that you be seen in follow up. We will electronically transmit a record of today's note if your PCP is in our system *If you do not have a primary care provider please contact the [facility] Resource line at [phone]. They will ask some questions about your medical history and help get you set up with a doctor in the community. *Return to Emergency Department if you should have any new, worsening or concerning symptoms, such as [fever greater than 101 F, shaking chills, worsening pain, persistent vomiting or other concerning symptoms]. Prescriptions: New sulfamethoxazole-trimethoprim [Bactrim DS] 800-160 mg tablet 1 tab PO Q12H Qty: 14 0RF Discontinued sulfamethoxazole-trimethoprim [Bactrim DS] 800-160 mg tablet 2 tab PO BID Qty: 20 0RF Rx Instructions: Take 2 tabs every 12 hours for 5 days. No Action labetalol 200 mg tablet 200 mg PO BID Qty: 60 3RF tramadol 50 mg Tablet 100 mg PO QID PRN (Reason: Pain, Moderate (4-6)) Qty: 20 0RF Referrals: Maria L Cadena MD [Primary Care Provider] - Stand Alone Forms: Patient Portal/API ED Sign-out <Leslee Goode DO - Last Filed: 12/23/23 07:50> Cosign ED Attending Lisa Attestation: I was available for consultation.
[2023-12-22 15:14] VITALS: BP 159/100; PULSE 106; RESP 14; O2SAT 100
== END 2023-12-22 15:15 | disposition home or self-care (01) ==
PROVIDERS: Emergency Provider Physician Assistant; Family Provider Family Medicine; PCP Family Medicine
DX: L03.116 Cellulitis of left lower limb (principal)
CPT/HCPCS: 99281

== ENCOUNTER 2024-02-21 16:44 | Emergency (ER) | payer OTHER, MEDICAID, SELFPAY ==
[2021-08-18 03:49] VITALS: BMI 30.9
[2024-02-21 16:57] VITALS: BP 144/89; PULSE 106; RESP 18; TEMP 37.6; O2SAT 99; BMI 31.6
--- NOTE | 2024-02-21 17:06 | DI.RAD.S_ITS ---
PROCEDURE: XR CHEST 1V INDICATIONS: suspected sepsis TECHNIQUE: One view of the chest was acquired. COMPARISON: None. FINDINGS: Surgical changes and devices: None. Lungs and pleura: Lungs are clear. No pleural effusions or pneumothorax. Mediastinum: Mediastinal contours appear normal. Heart size is normal. Bones and chest wall: No suspicious bony lesions. Overlying soft tissues appear unremarkable. IMPRESSION: No acute cardiopulmonary abnormality is seen. Approved by: Gosia Rice M.D.,Ph.D. on 02/21/2024 at 18:26
[2024-02-21 17:23] LABS: Add Manual Diff / Slide Review NO; Basophils Absolute Auto 100 /uL (0-100); Basophils Percent Auto 0.9 % (0-2); Eosinophils Absolute Auto 200 /uL (0-450); Eosinophils Percent Auto 1.5 % (2-4); Hematocrit 38.3 % (36-46); Hemoglobin 12.5 g/dL (12.0-16.0); Lymphocytes Absolute Auto 2900 /uL (1100-4500); Lymphocytes Percent Auto 23.8 % (25-40); Mean Corpuscular HGB Conc 32.7 % (30-36); Mean Corpuscular Volume 82.5 fL (80-100); Monocytes Absolute Auto 800 /uL (0-900); Monocytes Percent Auto 6.3 % (3-14); Neutrophils Absolute Auto 8200 /uL (1500-7000); Neutrophils Percent Auto 67.5 % (50-75); Platelet Count 370 X10^3/uL (150-400); Red Blood Cell Count 4.64 X10^6/uL (4.0-5.2); Red Cell Distribution Width 15.6 % (11.6-14.8); White Blood Cell Count 12.2 X10^3/uL (4.5-11.0)
[2024-02-21 17:32] LABS: INR 1.2 (0.9-1.3); Prothrombin Time 13.4 SECONDS (9.4-12.5)
[2024-02-21 17:35] LABS: PTT Partial Thromboplastin Tim 41 SECONDS (25.1-36.5)
[2024-02-21 17:37] LABS: Alanine Aminotransferase 14 IU/L (<35); Albumin 4.4 g/dL (3.5-5.0); Albumin Globulin Ratio 1.4 (1.0-2.8); Alkaline Phosphatase 85 U/L (38-126); Aspartate Aminotransferase 19 IU/L (14-36); Bilirubin Total 0.3 mg/dL (0.2-1.3); Blood Urea Nitrogen 9 mg/dL (7-17); Calcium 8.7 mg/dL (8.4-10.2); Carbon Dioxide 26 mmol/L (22-32); Chloride 107 mmol/L (98-107); Estimated Glomerular Filt Rate > 60 mL/min (>60); Globulin 3.2 g/dL (1.7-4.1); Glucose 99 mg/dL (70-100); HEMOLYSIS < 15 (0-50); Lactate (Lactic Acid) 0.7 mmol/L (0.7-2.1); Lipase 31 U/L (23-300); Potassium 3.9 mmol/L (3.4-5.1); Sodium 138 mmol/L (137-145); Total Protein 7.6 g/dL (6.3-8.2)
[2024-02-21 17:54] LABS: Procalcitonin < 0.030 ng/mL (<0.5)
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
[2024-02-21] MEDS: DOXYCYCLINE HYCLATE 100 MG TABLET PO (19:02)
[2024-02-21 19:08] VITALS: BP 158/98; PULSE 100; RESP 16; O2SAT 100
== END 2024-02-21 19:08 | disposition home or self-care (01) ==
PROVIDERS: Emergency Medicine; Emergency Provider Emergency Medicine; Family Provider Family Medicine; PCP Family Medicine
DX: L03.116 Cellulitis of left lower limb (principal)
CPT/HCPCS: 36415; 71045; 80053; 83605; 83690; 84145; 85025; 85610; 85730; 87040; 99283; 99284

== ENCOUNTER 2024-03-30 21:16 | Emergency (ER) | payer OTHER, MEDICAID, SELFPAY ==
[2021-08-18 03:49] VITALS: BMI 30.9
[2024-03-30 21:31] VITALS: BP 138/86; PULSE 101; RESP 20; TEMP 37.1; O2SAT 100
--- NOTE | 2024-03-30 21:48 | DI.CT.S_ITS ---
PROCEDURE: CT SOFT TISSUE NECK W CON INDICATIONS: L FACIAL SWELLING, POSS ABSCESS TECHNIQUE: After the administration of intravenous contrast, 3.0 mm axial sections acquired from the sella to the aortic arch. Additional oblique axial 3.0 mm sections acquired through the pharynx. 3 mm thick coronal and sagittal reformats were generated. For radiation dose reduction, the following was used: automated exposure control. COMPARISON: None. FINDINGS: Image quality: Diagnostic Lymph nodes: No enlarged lymph nodes seen throughout the neck. Vessels: Visualized vasculature appears patent. Neck spaces: The oropharynx, nasopharynx, and pharynx demonstrate no mucosal lesions. The vocal cords, false vocal cords, pyriform sinuses, epiglottis, vallecula, and tongue base all appear normal. There is subcutaneous fat stranding and swelling anterior to the left mandible. No rim enhancing fluid collection to suggest abscess. No subcutaneous emphysema. Glands: The parotid and submandibular glands appear normal. Thyroid gland is unremarkable. Miscellaneous: Visualized brain and orbits appear normal. Lung apices appear clear. Superficial soft tissues appear normal. Bones: Patient is edentulous. No suspicious bony lesions. Mild mucosal thickening of the left maxillary sinus. Remainder of the visualized sinuses and mastoids appear unremarkable. IMPRESSION: Left pre mandibular subcutaneous soft tissue inflammation concerning for cellulitis. No rim enhancing fluid collection to suggest abscess. No subcutaneous emphysema. Approved by: Gosia Rice M.D.,Ph.D. on 03/30/2024 at 23:00
--- NOTE | 2024-03-30 21:57 | ED_ITS ---
HPI - Skin/Abscess/Foreign Bdy General Chief complaint: Skin/Abscess/Foreign Body Stated complaint: jaw swelling/redness Time Seen by Provider: 03/30/24 21:17 Source: patient Mode of arrival: Ambulatory Limitations: no limitations History of Present Illness HPI narrative: 33-year-old female presents for left facial pain and swelling. Patient states that she noticed a bump on her jaw yesterday and by the time she presented today it had spread to her left jaw. States that she has no teeth and so she was not concerned it was a dental infection Related Data Previous Rx's Medication Instructions Recorded tramadol 50 mg tablet 100 mg (2 x 50 mg) PO QID PRN 08/16/21 Pain, Moderate (4-6) #20 tabs labetalol 200 mg tablet 200 mg PO BID #60 tabs 08/20/21 sulfamethoxazole 800 1 tab PO Q12H skin infection #14 12/22/23 mg-trimethoprim 160 mg tablet tabs (Bactrim DS) clindamycin HCl 150 mg capsule 450 mg (3 x 150 mg) PO TID 7 days 03/30/24 #63 caps sulfamethoxazole 800 1 tab PO Q12H #14 tabs 03/30/24 mg-trimethoprim 160 mg tablet Allergies Allergy/AdvReac Type Severity Reaction Status Date / Time diphenhydramine Allergy Severe Anaphylaxis Verified 02/21/24 17:05 [From Benadryl] Penicillins Allergy Severe Anaphylaxis Verified 02/21/24 17:05 cephalexin [CEPHALEXIN] Allergy Intermediate HIVES Verified 02/21/24 17:05 ibuprofen Allergy Intermediate Anaphylaxis Verified 02/21/24 17:05 codeine Allergy Mild Hives Verified 02/21/24 17:05 latex Allergy Unknown Verified 02/21/24 17:05 levofloxacin Allergy Unknown Verified 02/21/24 17:05 morphine Allergy Unknown Verified 02/21/24 17:05 oxycodone Allergy Unknown Verified 02/21/24 17:05 procaine Allergy Unknown Verified 02/21/24 17:05 clindamycin Allergy Rash Verified 03/30/24 23:13 Patient History Medical History Marijuana abuse Smoker Surgical History History of section Social History household members: significant other Smoking Status: Current every day smoker alcohol intake: former Smoking Status: Current every day smoker tobacco type: cigarettes alcohol intake frequency: other Substance Use Type: marijuana, IV drugs and methamphetamine Exam Initial Vital Signs Initial Vital Signs: Vital Signs Temperature 98.8 F 03/30/24 21:31 Pulse Rate 101 H 03/30/24 21:31 Respiratory Rate 20 03/30/24 21:31 Blood Pressure 138/86 03/30/24 21:31 Pulse Oximetry 100 03/30/24 21:31 Oxygen Delivery Method Room Air 03/30/24 21:31 Const: Awake, alert, appears older than stated age Mouth: No trismus, no pooling of secretions, mucous membranes moist Skin: Swelling left mandible jaw without obvious fluctuance Neuro: AO x3, CN II-XII grossly intact, moves all extremities Course Orders Ordered: ED Orders 03/30/24 21:48 CT soft tissue neck w con Stat 03/30/24 22:10 BMP [Basic Metabolic Panel] Stat CBC Auto Diff [Complete Blood Count AUTO DIFF] Stat Discontinued Medications Clindamycin HCl (Clindamycin 150 Mg Capsule) 450 mg PO NOW ONE Stop: 03/30/24 23:08 Last Admin: 03/30/24 23:12 Dose: Not Given Documented By: EARL Trimethoprim/Sulfamethoxazole (Trimeth/Sulfa 160/800 (Ds) Tablet) 1 tab PO NOW ONE Stop: 03/30/24 23:18 Last Admin: 03/30/24 23:25 Dose: 1 tab Documented By: EARL Vital Signs Vital signs: Vital Signs - 8 hr 03/30/24 21:31 03/30/24 23:43 Temperature 98.8 F 98.6 F Pulse Rate 101 H 94 H Respiratory Rate 20 18 Blood Pressure 138/86 134/80 Pulse Oximetry 100 99 Oxygen Delivery Method Room Air Room Air MDM - Skin/Abscess/Foreign Bdy Lab Data 03/30/24 22:10 03/30/24 22:10 Labs: Lab Results 03/30/24 Range/Units 22:10 WBC 12.0 H (4.5-11.0) X10^3/uL RBC 4.13 (4.0-5.2) X10^6/uL Hgb 11.0 L (12.0-16.0) g/dL Hct 33.7 L (36-46) % MCV 81.5 (80-100) fL MCH 26.5 (26-34) PG MCHC 32.5 (30-36) % RDW 15.2 H (11.6-14.8) % Plt Count 317 (150-400) X10^3/uL Neut % (Auto) 65.7 (50-75) % Lymph % (Auto) 22.8 L (25-40) % Walker % (Auto) 9.2 (3-14) % Eos % (Auto) 1.8 L (2-4) % Baso % (Auto) 0.5 (0-2) % Neut # (Auto) 7900 H (6559-1728) /uL Lymph # (Auto) 2700 (8516-4495) /uL Walker # (Auto) 1100 H (0-900) /uL Eos # (Auto) 200 (0-450) /uL Baso # (Auto) 100 (0-100) /uL Sodium 133 L (137-145) mmol/L Potassium 4.0 (3.4-5.1) mmol/L Chloride 105 (98-107) mmol/L Carbon Dioxide 24 (22-32) mmol/L BUN 10 (7-17) mg/dL Creatinine 0.65 (0.52-1.04) mg/dL Estimated GFR > 60 (>60) mL/min BUN/Creatinine Ratio 15.4 (6-22) Glucose 98 (70-100) mg/dL Calcium 8.5 (8.4-10.2) mg/dL Imaging Data CT scan - head: Radiologist's Impression: PROCEDURE: CT SOFT TISSUE NECK W CON INDICATIONS: L FACIAL SWELLING, POSS ABSCESS TECHNIQUE: After the administration of intravenous contrast, 3.0 mm axial sections acquired from the sella to the aortic arch. Additional oblique axial 3.0 mm sections acquired through the pharynx. 3 mm thick coronal and sagittal reformats were generated. For radiation dose reduction, the following was used: automated exposure control. COMPARISON: None. FINDINGS: Image quality: Diagnostic Lymph nodes: No enlarged lymph nodes seen throughout the neck. Vessels: Visualized vasculature appears patent. Neck spaces: The oropharynx, nasopharynx, and pharynx demonstrate no mucosal lesions. The vocal cords, false vocal cords, pyriform sinuses, epiglottis, vallecula, and tongue base all appear normal. There is subcutaneous fat stranding and swelling anterior to the left mandible. No rim enhancing fluid collection to suggest abscess. No subcutaneous emphysema. Glands: The parotid and submandibular glands appear normal. Thyroid gland is unremarkable. Miscellaneous: Visualized brain and orbits appear normal. Lung apices appear clear. Superficial soft tissues appear normal. Bones: Patient is edentulous. No suspicious bony lesions. Mild mucosal thickening of the left maxillary sinus. Remainder of the visualized sinuses and mastoids appear unremarkable. IMPRESSION: Left pre mandibular subcutaneous soft tissue inflammation concerning for cellulitis. No rim enhancing fluid collection to suggest abscess. No subcutaneous emphysema. Approved by: Gosia Rice M.D.,Ph.D. on 03/30/2024 at 23:00 [facility] Narrative Medical decision making narrative: Several days of left jaw swelling. Due to the amount of swelling a CT ordered for evaluation. Initially ordered Toradol for pain control, but patient reports anaphylaxis to ibuprofen and this was held. CT shows cellulitis without abscess. Initially clindamycin was ordered for coverage because patient reports severe allergy to both Keflex and penicillins, however patient then told nursing staff that she gets hives with clindamycin and can not take this drug. She states that the drugs she has been able to take in the past is Bactrim. Due to patient's allergy list she was instructed to take Tylenol for pain. Instructed to finish all antibiotics as prescribed. Discharge Plan Departure Patient Disposition: Home Clinical Impression: Cellulitis of face Instructions: DI for Cellulitis -- Adult Activity Restrictions/Additional Instructions: Your CT did not show an abscess, this is cellulitis of your face. Make sure to take all of your antibiotics as prescribed, even if you feel improved. Prescriptions: New clindamycin HCl 150 mg capsule 450 mg PO TID 7 Days Qty: 63 0RF sulfamethoxazole-trimethoprim 800-160 mg tablet 1 tab PO Q12H Qty: 14 0RF No Action labetalol 200 mg tablet 200 mg PO BID Qty: 60 3RF sulfamethoxazole-trimethoprim [Bactrim DS] 800-160 mg tablet 1 tab PO Q12H Qty: 14 0RF tramadol 50 mg Tablet 100 mg PO QID PRN (Reason: Pain, Moderate (4-6)) Qty: 20 0RF Referrals: Maria L Cadena MD [Primary Care Provider] - Stand Alone Forms: Patient Portal/API
[2024-03-30 22:20] LABS: Add Manual Diff / Slide Review NO; Basophils Absolute Auto 100 /uL (0-100); Basophils Percent Auto 0.5 % (0-2); Eosinophils Absolute Auto 200 /uL (0-450); Eosinophils Percent Auto 1.8 % (2-4); Hematocrit 33.7 % (36-46); Lymphocytes Absolute Auto 2700 /uL (1100-4500); Lymphocytes Percent Auto 22.8 % (25-40); Mean Corpuscular HGB Conc 32.5 % (30-36); Mean Corpuscular Hemoglobin 26.5 PG (26-34); Mean Corpuscular Volume 81.5 fL (80-100); Monocytes Absolute Auto 1100 /uL (0-900); Monocytes Percent Auto 9.2 % (3-14); Neutrophils Absolute Auto 7900 /uL (1500-7000); Neutrophils Percent Auto 65.7 % (50-75); Platelet Count 317 X10^3/uL (150-400); Red Blood Cell Count 4.13 X10^6/uL (4.0-5.2); Red Cell Distribution Width 15.2 % (11.6-14.8)
[2024-03-30 22:31] LABS: BUN Creatinine Ratio 15.4 (6-22); Blood Urea Nitrogen 10 mg/dL (7-17); Calcium 8.5 mg/dL (8.4-10.2); Carbon Dioxide 24 mmol/L (22-32); Chloride 105 mmol/L (98-107); Estimated Glomerular Filt Rate > 60 mL/min (>60); Glucose 98 mg/dL (70-100); HEMOLYSIS < 15 (0-50); Sodium 133 mmol/L (137-145)
[2024-03-30] MEDS: TRIMETH/SULFA 160/800 (DS) TABLET 1 TAB PO (23:25)
[2024-03-30 23:43] VITALS: BP 134/80; PULSE 94; RESP 18; TEMP 37; O2SAT 99
== END 2024-03-30 23:44 | disposition home or self-care (01) ==
PROVIDERS: Emergency Provider Emergency Medicine; Family Provider Family Medicine; PCP Family Medicine
DX: L03.211 Cellulitis of face (principal)
CPT/HCPCS: 36415; 70491; 80048; 85025; 99283; 99284; Q9967

== ENCOUNTER 2024-04-02 10:35 | Emergency (ER) | payer OTHER, MEDICAID, SELFPAY ==
[2021-08-18 03:49] VITALS: BMI 30.9
[2024-04-02 10:51] VITALS: BP 155/96; PULSE 115; RESP 20; TEMP 36.9; O2SAT 100; BMI 29.9
--- NOTE | 2024-04-02 11:10 | ED.SKABFB ---
HPI - Skin/Abscess/Foreign Bdy General Chief complaint: Skin/Abscess/Foreign Body Stated complaint: face swellimg from infection worse draining Time Seen by Provider: 04/02/24 10:41 Source: patient Mode of arrival: Ambulatory Limitations: no limitations History of Present Illness HPI narrative: Patient is a 33-year-old female. Does have a history of methamphetamine abuse. Is here for evaluation for worsening and now draining wounds to her left jaw region. She was seen here in the emergency department a couple days ago. Had labs and a CT scan performed. There was no abscess seen. Due to her allergy she was sent home on sulfa based drugs. She has been tolerating this well. Has been taking it since the event. She was here today because over the past couple hours she was noticed a increase in swelling along the left side of the jaw and also now 2 areas that are draining. She also has problems opening her mouth. No problems breathing. Related Data Previous Rx's Medication Instructions Recorded tramadol 50 mg tablet 100 mg (2 x 50 mg) PO QID PRN 08/16/21 Pain, Moderate (4-6) #20 tabs labetalol 200 mg tablet 200 mg PO BID #60 tabs 08/20/21 sulfamethoxazole 800 1 tab PO Q12H skin infection #14 12/22/23 mg-trimethoprim 160 mg tablet tabs (Bactrim DS) clindamycin HCl 150 mg capsule 450 mg (3 x 150 mg) PO TID 7 days 03/30/24 #63 caps sulfamethoxazole 800 1 tab PO Q12H #14 tabs 03/30/24 mg-trimethoprim 160 mg tablet doxycycline hyclate 100 mg tablet 100 mg PO BID 7 days #14 tabs 04/02/24 Allergies Allergy/AdvReac Type Severity Reaction Status Date / Time diphenhydramine Allergy Severe Anaphylaxis Verified 02/21/24 17:05 [From Benadryl] Penicillins Allergy Severe Anaphylaxis Verified 02/21/24 17:05 cephalexin [CEPHALEXIN] Allergy Intermediate HIVES Verified 02/21/24 17:05 ibuprofen Allergy Intermediate Anaphylaxis Verified 02/21/24 17:05 codeine Allergy Mild Hives Verified 02/21/24 17:05 latex Allergy Unknown Verified 02/21/24 17:05 levofloxacin Allergy Unknown Verified 02/21/24 17:05 morphine Allergy Unknown Verified 02/21/24 17:05 oxycodone Allergy Unknown Verified 02/21/24 17:05 procaine Allergy Unknown Verified 02/21/24 17:05 clindamycin Allergy Rash Verified 03/30/24 23:13 Review of Systems ENT Ears, Nose, Mouth, and Throat: Reports system reviewed and no additional complaints, except as documented Integumentary/Breasts Skin/Breast: Reports system reviewed and no additional complaints, except as documented Patient History Medical History Marijuana abuse Smoker Surgical History History of section Social History household members: significant other Smoking Status: Current every day smoker alcohol intake: former Smoking Status: Current every day smoker tobacco type: cigarettes alcohol intake frequency: other Substance Use Type: marijuana Exam Initial Vital Signs Initial Vital Signs: Vital Signs Temperature 98.4 F 04/02/24 10:51 Pulse Rate 115 H 04/02/24 10:51 Respiratory Rate 20 04/02/24 10:51 Blood Pressure 155/96 H 04/02/24 10:51 Pulse Oximetry 100 04/02/24 10:51 Oxygen Delivery Method Room Air 04/02/24 10:51 HENMT Mouth: oral mucosae normal and other (Missing teeth, no erythema nor abscesses intraoral) HENMT Other: Swelling along the left mandibular region. Please see skin section Resp Effort & Inspection: normal respiratory effort Skin Other: Along the left mandibular region there is areas of induration. There are 2 small areas less than 1 cm in diameter that are draining what appears to be purulent material. There is surrounding erythema around these areas that are draining. The induration that extends up to the angle of the mandible. There was no redness over this area of induration. Course Vital Signs Vital signs: Vital Signs - 8 hr 04/02/24 10:51 Temperature 98.4 F Pulse Rate 115 H Respiratory Rate 20 Blood Pressure 155/96 H Pulse Oximetry 100 Oxygen Delivery Method Room Air MDM - Skin/Abscess/Foreign Bdy MDM Narrative Medical decision making narrative: No respiratory distress. Is afebrile. Nontoxic appearing. Bedside ultrasound along the areas of induration does not show any deep abscesses. Fact that the 2 areas or draining is good. Bedside ultrasound shows a very small fluid collections underneath these areas. There was no indication for incision and drainage. She has been on the sulfa based drugs for the past couple days with improvement to the point that now things are draining but also worsening that the swelling is worsening. The plan is to switch to doxycycline. This was sent to the pharmacy of her choice. She was given return precautions and follow-up instructions. She expressed understanding and agreement. Discharge Plan Departure Patient Disposition: Home Clinical Impression: Cellulitis of face Instructions: DI for Cellulitis -- Adult Activity Restrictions/Additional Instructions: Stop taking the antibiotic that you were prescribed here in the emergency department during her last visit and start taking the new antibiotic that we prescribed today. Recommend a soft diet for the next couple days. Contact your primary doctor for a follow-up. Return to the emergency department for new or worsening symptoms Prescriptions: New doxycycline hyclate 100 mg tablet 100 mg PO BID 7 Days Qty: 14 0RF No Action labetalol 200 mg tablet 200 mg PO BID Qty: 60 3RF sulfamethoxazole-trimethoprim [Bactrim DS] 800-160 mg tablet 1 tab PO Q12H Qty: 14 0RF clindamycin HCl 150 mg capsule 450 mg PO TID 7 Days Qty: 63 0RF sulfamethoxazole-trimethoprim 800-160 mg tablet 1 tab PO Q12H Qty: 14 0RF tramadol 50 mg Tablet 100 mg PO QID PRN (Reason: Pain, Moderate (4-6)) Qty: 20 0RF Referrals: Maria L Cadena MD [Primary Care Provider] - Stand Alone Forms: Patient Portal/API
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
--- NOTE | 2024-04-02 12:21 | PC.NURSE ---
Pt informed we placed a food order tray for them, states Yay! we would love that. Apple juice provided to pt and son.
--- NOTE | 2024-04-02 13:08 | PC.NURSE ---
CPS worker Yamilex Gray calls ER to verify pt is still here in department. Yamilex updated that she is en route to [facility] and coordinating with Law enforcement to make contact with patient. Yamilex updates that LE is delayed, will respond as soon as possible. Yamilex contact: [phone]
--- NOTE | 2024-04-02 17:18 | PC.NURSE ---
Pt states awesome, I dont have to cook night. Food provided.
--- NOTE | 2024-04-02 19:00 | PC.NURSE ---
1425: This RN contacted Yamilex, with CPS, to get update on when staff could expect her and police to arrive at hospital. Yamilex stated that she is presently at the hospital but awaiting police arrival before she will make contact with patient. Yamilex states that local police were called away to a higher priority call at this time and she is unsure when they will be available. At this approximate time, patient has been resting in room 4 with child, intermittently exiting room to use restroom. Patient and child provided with lunch trays. 1645: Yamilex with CPS called back to inform staff that local police will not be able to accompany her at hospital regarding this CPS case because it is out of their jurisdiction. [facility] and expected ETA is 1715. Patient and child still located in room 4, they were provided with dinner trays. 1730: CPS compound worker, Yamilex and Johnna Denson arrived and met with this RN and directed to Rm 4 where they interviewed patient and completed assessment and documented markings and wounds on child. 1800: Patient agreed to have child checked in and evaluated by ER provider regarding skin markings and wounds. Yamilex with CPS remains present in room with patient and child.
[2024-04-02] MEDS: DOXYCYCLINE HYCLATE 100 MG TABLET PO (19:31)
[2024-04-02 19:35] VITALS: BP 168/101; PULSE 89; RESP 14; O2SAT 100
== END 2024-04-02 19:41 | disposition home or self-care (01) ==
PROVIDERS: Emergency Provider Emergency Medicine; Family Provider Family Medicine; PCP Family Medicine
DX: L03.211 Cellulitis of face (principal)
CPT/HCPCS: 99283

== ENCOUNTER 2024-04-04 19:50 | Emergency (ER) | payer OTHER, MEDICAID, SELFPAY ==
[2021-08-18 03:49] VITALS: BMI 30.9
[2024-04-04 19:56] VITALS: BP 154/98; PULSE 105; RESP 18; TEMP 37.7; O2SAT 100; BMI 29.9
--- NOTE | 2024-04-04 20:04 | EKG_ITS ---
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
--- NOTE | 2024-04-04 21:43 | ED.GENADULT ---
HPI - General Adult General Chief complaint: Weakness Stated complaint: chills, shakes, possible allergic reaction Time Seen by Provider: 04/04/24 20:54 Source: patient Mode of arrival: Ambulatory History of Present Illness HPI narrative: 33-year-old female with history of amphetamine use disorder presents for near syncopal episode as well as possible allergic reaction. Patient seen 03/30 for left-sided facial swelling, discharged on Bactrim. Return to the emergency department 04/02 with improved, but with continued facial swelling. At that time the swelling of the patient's face was noted to be improved and draining, but she was switched from Bactrim to doxycycline and discharged home. Patient states that she has been taking the doxycycline as prescribed. This evening while feeding her child she felt flushed and lightheaded. She states that her skin felt very hot and her roommate told her to be evaluated for possible interaction between the 2 antibiotics. Related Data Previous Rx's Medication Instructions Recorded tramadol 50 mg tablet 100 mg (2 x 50 mg) PO QID PRN 08/16/21 Pain, Moderate (4-6) #20 tabs labetalol 200 mg tablet 200 mg PO BID #60 tabs 08/20/21 sulfamethoxazole 800 1 tab PO Q12H skin infection #14 12/22/23 mg-trimethoprim 160 mg tablet tabs (Bactrim DS) sulfamethoxazole 800 1 tab PO Q12H #14 tabs 03/30/24 mg-trimethoprim 160 mg tablet doxycycline hyclate 100 mg tablet 100 mg PO BID 7 days #14 tabs 04/02/24 Allergies Allergy/AdvReac Type Severity Reaction Status Date / Time diphenhydramine Allergy Severe Anaphylaxis Verified 02/21/24 17:05 [From Benadryl] Penicillins Allergy Severe Anaphylaxis Verified 02/21/24 17:05 cephalexin [CEPHALEXIN] Allergy Intermediate HIVES Verified 02/21/24 17:05 ibuprofen Allergy Intermediate Anaphylaxis Verified 02/21/24 17:05 codeine Allergy Mild Hives Verified 02/21/24 17:05 latex Allergy Unknown Verified 02/21/24 17:05 levofloxacin Allergy Unknown Verified 02/21/24 17:05 morphine Allergy Unknown Verified 02/21/24 17:05 oxycodone Allergy Unknown Verified 02/21/24 17:05 procaine Allergy Unknown Verified 02/21/24 17:05 clindamycin Allergy Rash Verified 03/30/24 23:13 Patient History Medical History Marijuana abuse Smoker Surgical History History of section Social History household members: significant other Smoking Status: Current every day smoker alcohol intake: former Smoking Status: Current every day smoker tobacco type: cigarettes alcohol intake frequency: other Substance Use Type: marijuana Exam Initial Vital Signs Initial Vital Signs: Vital Signs Temperature 99.8 F H 04/04/24 19:56 Pulse Rate 105 H 04/04/24 19:56 Respiratory Rate 18 04/04/24 19:56 Blood Pressure 154/98 H 04/04/24 19:56 Pulse Oximetry 100 04/04/24 19:56 Oxygen Delivery Method Room Air 04/04/24 19:56 Const: Awake, alert, appears chronically unwell, much older than stated age Head/neck: Left jaw swelling, improved from previous Cardiac: regular rate, regular rhythm RESP: unlabored, clear bilaterally, no wheezing Skin: Warm, Dry, wound on left jaw in stages of healing Neuro: AO x3, CN II-XII grossly intact, moves all extremities Course Orders Ordered: ED Orders 04/04/24 20:04 EKG-12 Lead Stat 04/04/24 21:30 CBC Auto Diff [Complete Blood Count AUTO DIFF] Stat CMP [Comprehensive Metabolic Panel] Stat 04/04/24 21:42 Urine Drug Screen, Rapid Stat Vital Signs Vital signs: Vital Signs - 8 hr 04/04/24 19:56 Temperature 99.8 F H Pulse Rate 105 H Respiratory Rate 18 Blood Pressure 154/98 H Pulse Oximetry 100 Oxygen Delivery Method Room Air Medical Decision Making Lab Data 04/04/24 21:30 04/04/24 21:30 Labs: Lab Results 04/04/24 04/04/24 Range/Units 21:30 22:47 WBC 11.8 H (4.5-11.0) X10^3/uL RBC 4.60 (4.0-5.2) X10^6/uL Hgb 12.2 (12.0-16.0) g/dL Hct 37.4 (36-46) % MCV 81.3 (80-100) fL MCH 26.6 (26-34) PG MCHC 32.7 (30-36) % RDW 14.9 H (11.6-14.8) % Plt Count 345 (150-400) X10^3/uL Neut % (Auto) 80.8 H (50-75) % Lymph % (Auto) 11.2 L (25-40) % Dixon % (Auto) 6.5 (3-14) % Eos % (Auto) 1.2 L (2-4) % Baso % (Auto) 0.3 (0-2) % Neut # (Auto) 9600 H (7680-8578) /uL Lymph # (Auto) 1300 (7490-6501) /uL Dixon # (Auto) 800 (0-900) /uL Eos # (Auto) 100 (0-450) /uL Baso # (Auto) 0 (0-100) /uL Sodium 136 L (137-145) mmol/L Potassium 4.2 (3.4-5.1) mmol/L Chloride 104 (98-107) mmol/L Carbon Dioxide 26 (22-32) mmol/L BUN 13 (7-17) mg/dL Creatinine 0.74 (0.52-1.04) mg/dL Estimated GFR > 60 (>60) mL/min BUN/Creatinine Ratio 17.6 (6-22) Glucose 99 (70-100) mg/dL Calcium 8.6 (8.4-10.2) mg/dL Total Bilirubin 0.5 (0.2-1.3) mg/dL AST 30 (14-36) IU/L ALT 19 (<35) IU/L Alkaline Phosphatase 61 (38-126) U/L Total Protein 7.3 (6.3-8.2) g/dL Albumin 4.0 (3.5-5.0) g/dL Globulin 3.3 (1.7-4.1) g/dL Albumin/Globulin Ratio 1.2 (1.0-2.8) U Opiates 300ng/mL cut Negative (Negative) Ur Oxycodone Screen Negative (Negative) Urine Methadone Screen Negative (Negative) Ur Barbiturates Screen Negative (Negative) U Tricyclic Antidepress Negative (Negative) Ur Phencyclidine Scrn Negative (Negative) Ur Amphetamines Screen Negative (Negative) U Methamphetamines Scrn Negative (Negative) Ur MDMA Scrn (Ecstasy) Negative (Negative) U Benzodiazepines Scrn Negative (Negative) Urine Cocaine Screen Negative (Negative) U Marijuana (THC) Screen Negative (Negative) Urine pH TNP Urine Specific [place] TNP Ur Creatinine TNP Urine Dip Bedside Urine Glucose Negative Bedside Urine Bilirubin - Negative Bedside Urine Ketone - Negative Urine Specific [place] 1.015 Bedside Urine Occult Blood +/- Bedside Urine pH 6.0 Bedside Urine Protein - Negative Bedside Urine Urobilinogen - Negative Bedside Urine Nitrite - Negative Bedside Urine Leukocytes - Negative Esterase Point of care testing: Urine Dip Bedside Urine Glucose Negative Bedside Urine Bilirubin - Negative Bedside Urine Ketone - Negative Urine Specific [place] 1.015 Bedside Urine Occult Blood +/- Bedside Urine pH 6.0 Bedside Urine Protein - Negative Bedside Urine Urobilinogen - Negative Bedside Urine Nitrite - Negative Bedside Urine Leukocytes - Negative Esterase ECG Data Interpretation: Sinus tachycardia at 113 beats per minute, normal [place], no ST T wave changes MDM Narrative Medical decision making narrative: Well-appearing patient with shaky/cold sensation as well as the sensation that her skin is hot. Patient's primary concern is that this is a reaction to the doxycycline that she was recently started on. Patient's skin wound on her left jaw is improving and much smaller than when I initially saw the patient 5 days ago. EKG shows sinus tachycardia without concerning findings. There is no exam finding to suggest allergic reaction. There is no rash, shortness of breath, nausea, vomiting, wheezing. Patient encouraged to continue to take the doxycycline as prescribed. Discharge Plan Departure Patient Disposition: Home Clinical Impression: Near syncope Instructions: DI for Dizziness-Nonvertigo Activity Restrictions/Additional Instructions: Continue to take the doxycycline as prescribed. Your laboratory work today was normal. I do not believe that the symptoms you are experiencing are a side effect of the antibiotics. It was not dangerous to continue taking this medication based on your exam today. Prescriptions: No Action labetalol 200 mg tablet 200 mg PO BID Qty: 60 3RF sulfamethoxazole-trimethoprim [Bactrim DS] 800-160 mg tablet 1 tab PO Q12H Qty: 14 0RF sulfamethoxazole-trimethoprim 800-160 mg tablet 1 tab PO Q12H Qty: 14 0RF doxycycline hyclate 100 mg tablet 100 mg PO BID 7 Days Qty: 14 0RF tramadol 50 mg Tablet 100 mg PO QID PRN (Reason: Pain, Moderate (4-6)) Qty: 20 0RF Referrals: Maria L Cadena MD [Primary Care Provider] - Stand Alone Forms: Patient Portal/API
[2024-04-04 22:23] LABS: Add Manual Diff / Slide Review NO; Basophils Absolute Auto 0 /uL (0-100); Basophils Percent Auto 0.3 % (0-2); Eosinophils Absolute Auto 100 /uL (0-450); Eosinophils Percent Auto 1.2 % (2-4); Hematocrit 37.4 % (36-46); Hemoglobin 12.2 g/dL (12.0-16.0); Lymphocytes Absolute Auto 1300 /uL (1100-4500); Lymphocytes Percent Auto 11.2 % (25-40); Mean Corpuscular HGB Conc 32.7 % (30-36); Mean Corpuscular Hemoglobin 26.6 PG (26-34); Mean Corpuscular Volume 81.3 fL (80-100); Monocytes Absolute Auto 800 /uL (0-900); Monocytes Percent Auto 6.5 % (3-14); Neutrophils Absolute Auto 9600 /uL (1500-7000); Neutrophils Percent Auto 80.8 % (50-75); Platelet Count 345 X10^3/uL (150-400); Red Cell Distribution Width 14.9 % (11.6-14.8); White Blood Cell Count 11.8 X10^3/uL (4.5-11.0)
[2024-04-04 22:29] LABS: Alanine Aminotransferase 19 IU/L (<35); Albumin Globulin Ratio 1.2 (1.0-2.8); Alkaline Phosphatase 61 U/L (38-126); Aspartate Aminotransferase 30 IU/L (14-36); BUN Creatinine Ratio 17.6 (6-22); Bilirubin Total 0.5 mg/dL (0.2-1.3); Blood Urea Nitrogen 13 mg/dL (7-17); Calcium 8.6 mg/dL (8.4-10.2); Carbon Dioxide 26 mmol/L (22-32); Chloride 104 mmol/L (98-107); Estimated Glomerular Filt Rate > 60 mL/min (>60); Globulin 3.3 g/dL (1.7-4.1); Glucose 99 mg/dL (70-100); Potassium 4.2 mmol/L (3.4-5.1); Sodium 136 mmol/L (137-145); Total Protein 7.3 g/dL (6.3-8.2)
[2024-04-04 22:34] LABS: HEMOLYSIS 52 (0-50)
[2024-04-04 23:16] LABS: UR Morphine/Opiate cutoff 300 Negative (Negative); Urine Amphetamines Negative (Negative); Urine Barbiturates Negative (Negative); Urine Benzodiazepines Negative (Negative); Urine Cocaine Negative (Negative); Urine MDMA Negative (Negative); Urine Methadone Negative (Negative); Urine Methamphetamines Negative (Negative); Urine Phencyclidine Negative (Negative); Urine Tetrahydrocannabinol Negative (Negative); Urine Tricyclic Antidepressant Negative (Negative)
[2024-04-04 23:17] LABS: Urine Oxycodone Negative (Negative)
== END 2024-04-04 23:06 | disposition home or self-care (01) ==
PROVIDERS: Emergency Provider Emergency Medicine; Family Provider Family Medicine; PCP Family Medicine
DX: R55 Syncope and collapse (principal)
CPT/HCPCS: 36415; 80053; 80305; 81003; 85025; 93005; 99283